=== PATIENT | male | born 1935 | race Caucasian/White ===

== ENCOUNTER 2019-03-27 21:53 | Inpatient (IN) | payer OTHER ==
[~2019-03-27] VITALS: Ht 167.6 cm; Wt 76.0 kg
[2019-03-27 22:11] LABS: PCO2 Arterial 44.7 mmHg (35-45); PO2 Arterial 67.7 mmHg (80-100); pH Blood Arterial 7.38 (7.35-7.45)
[2019-03-27 22:36] LABS: BASOPHILS ABSOLUTE AUTO 0.05 K/mm3 (0.00-0.23); BASOPHILS PERCENT AUTO 1 % (0-2); EOSINOPHILS ABSOLUTE AUTO 0.14 K/mm3 (0.00-0.68); EOSINOPHILS PERCENT AUTO 1 % (0-6); Hematocrit 42.5 % (37.0-53.0); Hemoglobin 13.5 g/dL (13.5-17.5); IMMATURE GRAN ABSOLUTE AUTO 0.04 K/mm3 (0.00-0.10); IMMATURE GRAN PERCENT AUTO 0 % (0-1); LYMPHOCYTES ABSOLUTE AUTO 0.77 K/mm3 (0.84-5.20); LYMPHOCYTES PERCENT AUTO 8 % (21-46); MONOCYTES ABSOLUTE AUTO 1.23 K/mm3 (0.16-1.47); MONOCYTES PERCENT AUTO 12 % (4-13); Mean Corpuscular HGB 32.1 pg (26.0-34.0); Mean Corpuscular HGB Conc 31.8 g/dL (31.5-36.5); Mean Corpuscular Volume 101 fL (80-100); Mean Platelet Volume 9.6 fL (9.1-12.4); NEUTROPHILS PERCENT AUTO 78 % (41-73); Platelet Count 214 K/mm3 (150-400); RDW Coefficient Variation 13.6 % (11.7-14.2); RDW Standard Deviation 50.2 fL (35.1-46.3); Red Blood Cell Count 4.21 M/mm3 (4.30-5.90); White Blood Cell Count 10.33 K/mm3 (4.00-11.30)
[2019-03-27 22:56] LABS: Alanine Aminotransfer (ALT/SGP 29 U/L (12-78); Albumin/Globulin Ratio 0.8 (0.8-1.8); Alk Phos 81 U/L (50-136); Anion Gap 5 mmol/L (6-16); Aspartate Aminotrans (AST/SGOT 23 U/L (12-37); Bilirubin, Total 0.6 mg/dL (0.1-1.0); Blood Urea Nitrogen 18 mg/dL (8-24); Bun/Creatinine Ratio 14.6 (12.0-20.0); CO2, Blood 28 mmol/L (21-32); Calcium, Blood 8.9 mg/dL (8.5-10.1); Chloride, Blood 109 mmol/L (98-108); Creatinine, Blood 1.23 mg/dL (0.60-1.20); Glomerular Filtration Rate 60 (60-); Glucose, Blood 120 mg/dL (70-99); Potassium, Blood 4.7 mmol/L (3.5-5.5); Sodium, Blood 142 mmol/L (136-145); Troponin I <0.015 ng/mL (0.000-0.040)
[2019-03-27 23:07] LABS: International Normalized Ratio 3.33; Prothrombin Time Results 31.6 Sec (9.7-11.5)
[2019-03-28] MEDS ORDERED: ALBU2.5V5 INH (00:50)
[2019-03-28] MEDS ORDERED: THERA-D2000 UNIT PO (00:51)
[2019-03-28] MEDS ORDERED: ALBU90OI INH (00:51)
[2019-03-28] MEDS ORDERED: LANOXIN125 MCG PO (00:52)
[2019-03-28] MEDS ORDERED: DILT30 PO (00:52)
[2019-03-28] MEDS ORDERED: CYAN500 PO (00:52)
[2019-03-28] MEDS ORDERED: Fish Oil 10001000 MG PO (00:53)
[2019-03-28] MEDS ORDERED: Flonase 0.05% N16 GM (00:53)
[2019-03-28] MEDS ORDERED: HYDR10 PO (00:54)
[2019-03-28] MEDS ORDERED: FURO20 PO (00:54)
[2019-03-28] MEDS ORDERED: LOSA25 PO (00:54)
[2019-03-28] MEDS ORDERED: GUAI600T33 PO (00:54)
[2019-03-28] MEDS ORDERED: MUPIROCIN15 GM TOP (00:55)
[2019-03-28] MEDS ORDERED: STRIVERDI RESPIM4 GM INH (00:55)
[2019-03-28] MEDS ORDERED: OXYC5 PO (00:56)
[2019-03-28] MEDS ORDERED: OXYM.05NI (00:56)
[2019-03-28] MEDS ORDERED: K-Dur10 MEQ PO (00:57)
[2019-03-28] MEDS ORDERED: PSEU120ER PO (00:57)
[2019-03-28] MEDS ORDERED: SILD50TA PO (00:59)
[2019-03-28] MEDS ORDERED: TAMS.4ER PO (00:59)
[2019-03-28] MEDS ORDERED: FINA5 PO (01:00)
[2019-03-28] MEDS ORDERED: B-1100 M1 PO (01:00)
[2019-03-28] MEDS ORDERED: TRIA15CR3 TOP (01:00)
[2019-03-28] MEDS ORDERED: ZOSTAVAX V19400 UNIT INJ (01:01)
[2019-03-28] MEDS ORDERED: WARF5 PO (01:01)
--- NOTE | 2019-03-28 02:35 | NUR ---
PT ARRIVED TO ICU 6 FROM ER PCU ADMIT. PT IS A/O. ON 6L NC. PT IS SOB WITH MINIMAL EXERTION. HAVING BLADDER SPASMS FROM GETTING IV LASIX AND IS IN A PANIC OVER NEEDING TO VOID. ABLE TO PLACE CONDOM CATH AND PT CALMED DOWN AND IS ABLE TO VOID INTO IT. ONCE PT IS SETTLED IN TO BED, HIS BREATHING IMPROVES AND HE IS ABLE TO HOLD CONVERSATION. SEE ASSESSMENT.
--- NOTE | 2019-03-28 03:50 | NUR ---
PT IS HYPERTENSIVE AND WORRIED ABOUT NOT GETTING HIS COUMADIN DOSE TODAY. CALLED DR. NORIEGA WHO ORDERED HYDRALAZINE AND HOME COUMADIN DOSE.
[2019-03-28 06:20] LABS: Hematocrit 47.4 % (37.0-53.0); Hemoglobin 15.3 g/dL (13.5-17.5); Mean Corpuscular HGB 31.8 pg (26.0-34.0); Mean Corpuscular HGB Conc 32.3 g/dL (31.5-36.5); Mean Corpuscular Volume 99 fL (80-100); Mean Platelet Volume 9.4 fL (9.1-12.4); Platelet Count 217 K/mm3 (150-400); RDW Coefficient Variation 13.6 % (11.7-14.2); RDW Standard Deviation 49.5 fL (35.1-46.3); Red Blood Cell Count 4.81 M/mm3 (4.30-5.90); White Blood Cell Count 8.71 K/mm3 (4.00-11.30)
[2019-03-28 06:26] LABS: Adenovirus Not Detected (NOT DETECT); Bordetella pertussis Not Detected (NOT DETECT); Chlamydophila pneumoniae Not Detected (NOT DETECT); Coronavirus 229E Not Detected (NOT DETECT); Coronavirus HKU1 Not Detected (NOT DETECT); Coronavirus NL63 Not Detected (NOT DETECT); Coronavirus OC43 Not Detected (NOT DETECT); Human Metapneumovirus Not Detected (NOT DETECT); Human Rhinovirus/Enterovirus Detected (NOT DETECT); Influenza A Not Detected (NOT DETECT); Influenza A/2009-H1 Not Detected (NOT DETECT); Influenza A/H1 Not Detected (NOT DETECT); Influenza A/H3 Not Detected (NOT DETECT); Influenza B Not Detected (NOT DETECT); Mycoplasma pneumoniae Not Detected (NOT DETECT); Parainfluenza Virus 1 Not Detected (NOT DETECT); Parainfluenza Virus 2 Not Detected (NOT DETECT); Parainfluenza Virus 3 Not Detected (NOT DETECT); Parainfluenza Virus 4 Not Detected (NOT DETECT); Respiratory Syncytial Virus Not Detected (NOT DETECT)
[2019-03-28 06:35] LABS: Albumin, Blood 3.5 g/dL (3.4-5.0); Albumin/Globulin Ratio 0.8 (0.8-1.8); Bilirubin, Total 0.9 mg/dL (0.1-1.0); Bun/Creatinine Ratio 15.1 (12.0-20.0); Calcium, Blood 9.6 mg/dL (8.5-10.1); Creatinine, Blood 1.26 mg/dL (0.60-1.20); Globulin, Blood 4.6 g/dL (2.2-4.0); Potassium, Blood 3.9 mmol/L (3.5-5.5); Total Protein, Blood 8.1 g/dL (6.4-8.2)
[2019-03-28 06:36] LABS: CPK Creatine Kinase 91 U/L (39-308); Troponin I <0.015 ng/mL (0.000-0.040)
--- NOTE | 2019-03-28 10:13 | NUR ---
CARDIAC ECHO IN PROGRESS.
--- NOTE | 2019-03-28 12:24 | NUR ---
ECHOCARDIOGRAM COMPLETED
[2019-03-28 14:31] LABS: CPK Creatine Kinase 141 U/L (39-308); Troponin I <0.015 ng/mL (0.000-0.040)
--- NOTE | 2019-03-28 18:18 | NUR ---
TRANSFER NOTIFIED BY VI GOOD THAT PT IS TO TRANSFER TO PCU 14. REPORT RECIEVED FROM VI GRAY.
--- NOTE | 2019-03-28 19:18 | NUR ---
ARRIVAL TO PCU PT ARRIVED TO PCU 14 APPROX 1850. VITALS STABLE. AFIB 80'S. PT ORIENTED TO ROOM. REPORT TO VI ANG TO ASSUME CARE.
--- NOTE | 2019-03-28 20:43 | NUR ---
CARE ASSUMPTION PT A&O X4, CALM AND COOPERATIVE. VSS. MONITOR SHOWS AFIB, HR 90-110. LUNG SOUNDS DIM T/O. SPO2 > 90% ON 4-6L NC. PT W/ CONDOM CATH IN PLACE FOR DIURESES/PT SOB. CATH PATENT AND DRAINING CLEAR YELLOW URINE. PT DENIES PAIN/DISCOMFORT. WILL CONTINUE TO MONITOR AND PROVIDE CARE.
[2019-03-29 04:16] LABS: BASOPHILS ABSOLUTE AUTO 0.01 K/mm3 (0.00-0.23); BASOPHILS PERCENT AUTO 0 % (0-2); EOSINOPHILS PERCENT AUTO 0 % (0-6); Hematocrit 43.9 % (37.0-53.0); IMMATURE GRAN ABSOLUTE AUTO 0.07 K/mm3 (0.00-0.10); IMMATURE GRAN PERCENT AUTO 1 % (0-1); LYMPHOCYTES ABSOLUTE AUTO 0.24 K/mm3 (0.84-5.20); LYMPHOCYTES PERCENT AUTO 2 % (21-46); MONOCYTES ABSOLUTE AUTO 0.23 K/mm3 (0.16-1.47); MONOCYTES PERCENT AUTO 2 % (4-13); Mean Corpuscular HGB 31.4 pg (26.0-34.0); Mean Corpuscular HGB Conc 31.9 g/dL (31.5-36.5); Mean Corpuscular Volume 98 fL (80-100); Mean Platelet Volume 9.4 fL (9.1-12.4); NEUTROPHILS ABSOLUTE AUTO 14.03 K/mm3 (1.96-9.15); NEUTROPHILS PERCENT AUTO 96 % (41-73); Platelet Count 229 K/mm3 (150-400); RDW Coefficient Variation 13.5 % (11.7-14.2); RDW Standard Deviation 49.1 fL (35.1-46.3); Red Blood Cell Count 4.46 M/mm3 (4.30-5.90); White Blood Cell Count 14.58 K/mm3 (4.00-11.30)
[2019-03-29 04:30] LABS: International Normalized Ratio 3.26
[2019-03-29 04:36] LABS: Albumin, Blood 2.9 g/dL (3.4-5.0); Anion Gap 5 mmol/L (6-16); Blood Urea Nitrogen 30 mg/dL (8-24); CO2, Blood 30 mmol/L (21-32); Calcium, Blood 8.9 mg/dL (8.5-10.1); Chloride, Blood 103 mmol/L (98-108); Glomerular Filtration Rate >60 (60-); Glucose, Blood 131 mg/dL (70-99); Phosphorus, Blood 3.1 mg/dL (2.5-4.9); Potassium, Blood 4.2 mmol/L (3.5-5.5); Sodium, Blood 138 mmol/L (136-145)
--- NOTE | 2019-03-29 06:02 | NUR ---
SHIFT SUMMARY PT CONTINUES TO BE A&O X4, CALM AND COOPERATIVE. PT SLEEPING SOUNDLY MAJORITY OF SHIFT. BP ELEVATED, MEDICATED W/ PRN IV HYDRALAZINE PER EMAR X1 THIS SHIFT W/ IMPROVEMENT, OTHERWISE VSS. MONITOR SHOWS AFIB, HR 70-110. LUNG SOUNDS DIM T/O. SPO2 > 90% ON 4-6L NC. PT CONDOM CATH PATENT AND DRAINING CLEAR, DARK YELLOW URINE. WILL CONTINUE TO MONITOR AND PROVIDE CARE UNTIL REPORT OFF TO DAY SHIFT RN.
--- NOTE | 2019-03-29 18:35 | NUR ---
SHIFT SUMMARY PT A&Ox4. CALM AND COOPERATIVE WTIH CARE. LOWER ELWHA EVEN WITH HEARING AIDS IN PLACE. PT SOB WITH EXERTION, SPO2 >90%, STARTED THIS AM ON 6L O2 VIA NC, TITRATED TO 3L O2 VIA NC, 4-5L WITH EXERTION, RECOVERS QUICKLY. PT LS DIM T/O, PT REPROTS HAVE A PORT OF LEFT LUNG REMOVED WHEN HE HAD CANCER. PT DENIES PAIN AND N/V DURING SHIFT. PT RECEIVING IV ANTIBIOTICS AND LASIX. VSS. NO OTHER ACUTE CHANGES NOTED DURING SHIFT. WILL CONTINUE TO MONITOR UNITL REPORT GIVEN TO ONCOMING RN.
[2019-03-30 04:00] LABS: BASOPHILS ABSOLUTE AUTO 0.01 K/mm3 (0.00-0.23); BASOPHILS PERCENT AUTO 0 % (0-2); EOSINOPHILS PERCENT AUTO 0 % (0-6); Hematocrit 44.6 % (37.0-53.0); Hemoglobin 13.9 g/dL (13.5-17.5); IMMATURE GRAN ABSOLUTE AUTO 0.09 K/mm3 (0.00-0.10); IMMATURE GRAN PERCENT AUTO 1 % (0-1); LYMPHOCYTES ABSOLUTE AUTO 0.23 K/mm3 (0.84-5.20); LYMPHOCYTES PERCENT AUTO 1 % (21-46); MONOCYTES ABSOLUTE AUTO 0.37 K/mm3 (0.16-1.47); MONOCYTES PERCENT AUTO 2 % (4-13); Mean Corpuscular HGB 31.2 pg (26.0-34.0); Mean Corpuscular HGB Conc 31.2 g/dL (31.5-36.5); Mean Corpuscular Volume 100 fL (80-100); Mean Platelet Volume 9.3 fL (9.1-12.4); NEUTROPHILS ABSOLUTE AUTO 15.28 K/mm3 (1.96-9.15); NEUTROPHILS PERCENT AUTO 96 % (41-73); Platelet Count 256 K/mm3 (150-400); RDW Coefficient Variation 13.7 % (11.7-14.2); RDW Standard Deviation 50.3 fL (35.1-46.3); Red Blood Cell Count 4.46 M/mm3 (4.30-5.90); White Blood Cell Count 15.98 K/mm3 (4.00-11.30)
[2019-03-30 04:13] LABS: International Normalized Ratio 2.66; Prothrombin Time Results 25.8 Sec (9.7-11.5)
[2019-03-30 04:22] LABS: Albumin, Blood 2.9 g/dL (3.4-5.0); Anion Gap 4 mmol/L (6-16); Blood Urea Nitrogen 44 mg/dL (8-24); Bun/Creatinine Ratio 29.1 (12.0-20.0); CO2, Blood 32 mmol/L (21-32); Calcium, Blood 8.7 mg/dL (8.5-10.1); Chloride, Blood 103 mmol/L (98-108); Creatinine, Blood 1.51 mg/dL (0.60-1.20); Glomerular Filtration Rate 47 (60-); Glucose, Blood 121 mg/dL (70-99); Phosphorus, Blood 3.5 mg/dL (2.5-4.9); Potassium, Blood 4.7 mmol/L (3.5-5.5); Sodium, Blood 139 mmol/L (136-145)
--- NOTE | 2019-03-30 05:34 | NUR ---
SHIFT SUMMARY PT SLEEPING COMFORTABLY IN ROOM AT THIS TIME. NO ACUTE CHANGES IN STATUS T/O NIGHT PT REPORTS SLEEPING WERL. DID REPORT FEELING MORE CONGESTED T/O NIGHT. 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 RESP EVEN UNLABORED AT REST ON 3L NC SATS >92%. RT ALSO PROVIDED PT WITH HUMIDIFIED O2 ON NC TO HELP WITH DRIED OUT NASAL PASAGE, AND HELP BREAK UP MUCOUS. PT DENIES OTHER NEEDS. PT IS ABLE TO AMBULATE FROM BED TO RR W/ ASSIST. CALL LIGHT NI REACH.
--- NOTE | 2019-03-30 07:00 | NUR ---
REPORT AND WALKING ROUNDS WITH DEONDRE LEBRON. ASSUMING PT CARE.
--- NOTE | 2019-03-30 07:50 | NUR ---
VSS. ASSESSMENT AT CHARTED. PT ALERT AND ORIENTED. INDEPENDENT IN THE ROOM. ON 3L O2 (BASELINE). PT HAS NO COMPLAINTS AT THIS TIME. DENIES PAIN OR SOB CURRENTLY. UNABLE TO PROVIDE SPUTUM SPEC CURRENTLY. CALL LIGHT IN REACH. BREAKFAST PROVIDED.
--- NOTE | 2019-03-30 09:25 | NUR ---
PT MEDICATED WITH SCHEDULED MEDICATIONS. PT STILL SITTING UP IN BED. DENIES NEEDS.
--- NOTE | 2019-03-30 10:20 | NUR ---
DRESSING TO IV CHANGED AT THIS TIME.
--- NOTE | 2019-03-30 10:45 | NUR ---
DR SEGURA TO ROOM FOR EVAL. PLAN TO KEEP PT ONE MORE DAY. PLAN TO CONSULT PT. ORDERS FOR IN HOUSE TX TO MED WITH TELE RECEIVED.
--- NOTE | 2019-03-30 11:43 | NUR ---
REPORT TO AUDIE LEBRON ON MEDICAL FLOOR.
--- NOTE | 2019-03-30 12:35 | NUR ---
PT TO IMAGING THEN TO 330 VIA JUANITO. AUDIE LEBRON AWARE. MEDS SENT.
--- NOTE | 2019-03-30 12:45 | NUR ---
PT. ARRIVED TO ROOM VIA WC FROM PCU AFTER GOING FOR CHEST XRAY ON THE WAY UP. PT. A&O. JAYNE AND COOPEATIVE.
--- NOTE | 2019-03-30 18:38 | NUR ---
PT. LYING IN BED WATCHING TV AFTER FINISHING HIS DINNER. NO NOTEABL CHANGES SINCE COMING TO THE FLOOR
--- NOTE | 2019-03-30 23:03 | NUR ---
03/30/19 2250 C/O DRY, PLUGGED NOSE. DEEP SEA NASAL SPRAY GIVEN PER JUN. EDYTA MUHAMMAD WITH Q TIPS TO SOOTHES DRY NARES WELL WAS GIVEN.
[2019-03-31 05:15] LABS: BASOPHILS ABSOLUTE AUTO 0.01 K/mm3 (0.00-0.23); BASOPHILS PERCENT AUTO 0 % (0-2); EOSINOPHILS PERCENT AUTO 0 % (0-6); Hematocrit 44.8 % (37.0-53.0); Hemoglobin 14.2 g/dL (13.5-17.5); IMMATURE GRAN ABSOLUTE AUTO 0.07 K/mm3 (0.00-0.10); IMMATURE GRAN PERCENT AUTO 1 % (0-1); LYMPHOCYTES ABSOLUTE AUTO 0.24 K/mm3 (0.84-5.20); LYMPHOCYTES PERCENT AUTO 2 % (21-46); MONOCYTES ABSOLUTE AUTO 0.59 K/mm3 (0.16-1.47); MONOCYTES PERCENT AUTO 4 % (4-13); Mean Corpuscular HGB 31.8 pg (26.0-34.0); Mean Corpuscular HGB Conc 31.7 g/dL (31.5-36.5); Mean Corpuscular Volume 100 fL (80-100); Mean Platelet Volume 9.2 fL (9.1-12.4); NEUTROPHILS ABSOLUTE AUTO 12.88 K/mm3 (1.96-9.15); NEUTROPHILS PERCENT AUTO 93 % (41-73); Platelet Count 250 K/mm3 (150-400); RDW Coefficient Variation 13.6 % (11.7-14.2); RDW Standard Deviation 49.9 fL (35.1-46.3); Red Blood Cell Count 4.46 M/mm3 (4.30-5.90); White Blood Cell Count 13.79 K/mm3 (4.00-11.30)
[2019-03-31 05:32] LABS: Albumin, Blood 2.8 g/dL (3.4-5.0); Anion Gap 3 mmol/L (6-16); Blood Urea Nitrogen 48 mg/dL (8-24); Bun/Creatinine Ratio 36.6 (12.0-20.0); CO2, Blood 31 mmol/L (21-32); Calcium, Blood 8.4 mg/dL (8.5-10.1); Chloride, Blood 103 mmol/L (98-108); Creatinine, Blood 1.31 mg/dL (0.60-1.20); Glomerular Filtration Rate 55 (60-); Glucose, Blood 112 mg/dL (70-99); International Normalized Ratio 2.83; Phosphorus, Blood 2.8 mg/dL (2.5-4.9); Potassium, Blood 4.8 mmol/L (3.5-5.5); Prothrombin Time Results 27.3 Sec (9.7-11.5); Sodium, Blood 137 mmol/L (136-145)
--- NOTE | 2019-03-31 06:02 | NUR ---
03/31/19 0600 VITALS STABLE. SEE PREVIOUS NOTES FOR MILD ISSUES. O2 REMAINS AT 3LPM VIA N/C. SELF TO THE BATHROOM WITHOUT PROBLEMS.UNEVENTFUL NIGHT.
--- NOTE | 2019-03-31 11:28 | NUR ---
HE HAS BEEN VERY CHEERFUL. HE IS WEARING 3L O2 AND IS SADDENED BY HIS WORSENING COPD OVER THE PAST YEAR. HE WEARS 3L O2 AT HOME ALSO. HE SAYS HE FINALLY QUIT WORKING LAST YEAR BECAUSE OF HIS BREATHING. HE HAS A FRIEND THAT HELPS HIM AT HOME WHEN HE NEEDS IT. UP AD JEAN-PAUL IN THE ROOM.
--- NOTE | 2019-03-31 16:07 | NUR ---
HE IS CURRENTLY ASLEEP ON HIS LEFT SIDE IN THE BED WITH THE HOB UP 45 DEGREES. PO LASIX STARTED EARLIER. NO SIGNIFICANT DIURESIS THUS FAR. HIS BREATHING IS LABORED. HE IS [place]. HE IS VERY PLEASANT. TELE AFIB 80. IV ANTIBIOTICS ONGOING.
--- NOTE | 2019-03-31 18:33 | NUR ---
HE IS WORKING [employer] NOW. HE HAD 1 AFTERNOON NAP. HE EATS AND DRINKS WELL. POOR DIURESIS FROM THE PO LASIX TODAY. 3L NC. INDEPENDENT TO THE BATHROOM. AFIB ON TELE. RATE WNL.
--- NOTE | 2019-04-01 04:36 | NUR ---
SHIFT SUMMARY NO ACUTE CHANGES THIS SHIFT. AOX4. VSS. TELE IN PLACE, RUNNING AFIB HR@74. SPO2 @91% ON 3L O2 (BASELINE). LUNGS SOUND WHEEZY T/O, RT GAVE BREATHING TX PER ORDERS, E/U RESPIRATIONS, PT REPORTS "STUFFY NOSE" & STATES NASAL SPRAY HELPING. DENIES COUGH, PAIN OR NAUSEA. CALL LIGHT IN REACH. WCTM.
[2019-04-01 05:03] LABS: BASOPHILS ABSOLUTE AUTO 0.01 K/mm3 (0.00-0.23); BASOPHILS PERCENT AUTO 0 % (0-2); EOSINOPHILS PERCENT AUTO 0 % (0-6); Hematocrit 44.2 % (37.0-53.0); Hemoglobin 13.9 g/dL (13.5-17.5); IMMATURE GRAN ABSOLUTE AUTO 0.05 K/mm3 (0.00-0.10); IMMATURE GRAN PERCENT AUTO 0 % (0-1); LYMPHOCYTES ABSOLUTE AUTO 0.32 K/mm3 (0.84-5.20); LYMPHOCYTES PERCENT AUTO 3 % (21-46); MONOCYTES ABSOLUTE AUTO 1.03 K/mm3 (0.16-1.47); MONOCYTES PERCENT AUTO 8 % (4-13); Mean Corpuscular HGB 31.6 pg (26.0-34.0); Mean Corpuscular HGB Conc 31.4 g/dL (31.5-36.5); Mean Corpuscular Volume 101 fL (80-100); Mean Platelet Volume 9.1 fL (9.1-12.4); NEUTROPHILS ABSOLUTE AUTO 11.08 K/mm3 (1.96-9.15); NEUTROPHILS PERCENT AUTO 89 % (41-73); Platelet Count 221 K/mm3 (150-400); RDW Coefficient Variation 13.3 % (11.7-14.2); RDW Standard Deviation 49.5 fL (35.1-46.3); White Blood Cell Count 12.49 K/mm3 (4.00-11.30)
[2019-04-01 05:17] LABS: International Normalized Ratio 3.56; Prothrombin Time Results 33.6 Sec (9.7-11.5)
[2019-04-01 05:20] LABS: Albumin, Blood 2.7 g/dL (3.4-5.0); Anion Gap 3 mmol/L (6-16); Blood Urea Nitrogen 45 mg/dL (8-24); Bun/Creatinine Ratio 37.2 (12.0-20.0); CO2, Blood 32 mmol/L (21-32); Calcium, Blood 8.2 mg/dL (8.5-10.1); Chloride, Blood 104 mmol/L (98-108); Creatinine, Blood 1.21 mg/dL (0.60-1.20); Glomerular Filtration Rate >60 (60-); Glucose, Blood 96 mg/dL (70-99); Phosphorus, Blood 2.7 mg/dL (2.5-4.9); Potassium, Blood 4.9 mmol/L (3.5-5.5); Sodium, Blood 139 mmol/L (136-145)
[2019-04-01] MEDS ORDERED: Prednisone10 MG PO (09:32)
[2019-04-01] MEDS ORDERED: Florastor250 MG PO (09:33)
[2019-04-01] MEDS ORDERED: AMOCLA875 PO (09:34)
[2019-04-01] MEDS ORDERED: FLUT1DIS5 INH (09:34)
--- NOTE | 2019-04-01 13:30 | NUR ---
PT DISCHARGED THE PT AND HIS UNIVERSITY INTERN VERBALIZED UNDERSTANDING OF THE DC INSTRUCTIONS, [facility]POINTMENT WAS MADE [facility], THE [facility] PRES[facility] TO [facility] REQUEST[facility], PTS HOME O2 OXYGEN WAS APPLIED, THE PT WAS TRANSFERED VIA WHEELCHAIR ACCOMPANIED BY THE [facility] AND HIS CAREGIVER
== END 2019-04-01 13:29 | disposition home health service (06) | DRG 291 ==
LOC: ER 21:53 → ICUW 03-28 02:40 → ICUE 03-28 02:50 → PCU 03-28 19:00 → MEDS 03-30 12:45 → ENPENDDIS 04-01 11:25 → MEDS 04-01 13:29
PROVIDERS: Emergency Medicine; Family Medicine; Pharmacist; ADMIT Internal Medicine
PROC: 5A09357 Assistance with Respiratory Ventilation, Less than 24 Consecutive Hours, Continuous Positive Airway Pressure (ICD-10-PCS; principal; 2019-03-27)
DX: I13.0 Hypertensive heart and chronic kidney disease with heart failure and stage 1 through stage 4 chronic kidney disease, or unspecified chronic kidney disease (principal); J96.01 Acute respiratory failure with hypoxia; I50.31 Acute diastolic (congestive) heart failure; J18.9 Pneumonia, unspecified organism; J44.1 Chronic obstructive pulmonary disease with (acute) exacerbation; N17.9 Acute kidney failure, unspecified; Z85.118 Personal history of other malignant neoplasm of bronchus and lung; N40.0 Benign prostatic hyperplasia without lower urinary tract symptoms; N18.2 Chronic kidney disease, stage 2 (mild); I48.91 Unspecified atrial fibrillation; Z99.81 Dependence on supplemental oxygen; J06.9 Acute upper respiratory infection, unspecified; T38.0X5A Adverse effect of glucocorticoids and synthetic analogues, initial encounter; Y92.239 Unspecified place in hospital as the place of occurrence of the external cause; Z79.01 Long term (current) use of anticoagulants
CPT/HCPCS: 0099U; 36415; 36600; 71045; 71046; 80053; 80069; 80162; 82550; 82803; 83735; 83880; 84145; 84484; 85025; 85027; 85610; 93005; 93010; 93306; 94640; 94644; 94660; 94760; 94762; 96374; 96375; 97110; 97162; 97166; 99285-25; J0360; J0456; J0696; J1940; J2930; J7050; J7512

== ENCOUNTER 2020-05-13 12:33 | Inpatient (IN) | payer OTHER ==
[~2020-05-13] VITALS: Ht 175.3 cm; Wt 81.9 kg
[~2020-05-13 12:33] MED LIST: ALBU2.5V5 INH; ALBU90OI INH; AMOCLA875 PO; B-1100 M1 PO; CYAN500 PO; DILT180 PO; FINA5 PO; FLUTICASONE-SA1 EAC2 INH; FURO20 PO; Fish Oil 10001000 MG PO; Flonase 0.05% N16 GM; Florastor250 MG PO; GUAI600T33 PO; HYDR10 PO; K-Dur10 MEQ PO; LANOXIN125 MCG PO; LOSA25 PO; MUPIROCIN15 GM TOP; OXYC5 PO; OXYM.05NI; PSEU120ER PO; Prednisone10 MG PO; SILD50TA PO; STRIVERDI RESPIM4 GM INH; TAMS.4ER PO; THERA-D2000 UNIT PO; TRIA15CR3 TOP; WARF5 PO; ZOSTAVAX V19400 UNIT INJ
[2020-05-13 12:48] LABS: Bicarbonate Venous 28.5 mmol/L (24.0-30.0); PCO2 Venous 81.1 mmHg (38-42); PO2 Venous 34.2 mmHg (38-42); pH Blood Venous 7.26 (7.34-7.37)
[2020-05-13 13:03] LABS: BASOPHILS ABSOLUTE AUTO 0.04 K/mm3 (0.00-0.23); BASOPHILS PERCENT AUTO 0 % (0-2); EOSINOPHILS ABSOLUTE AUTO 0.04 K/mm3 (0.00-0.68); EOSINOPHILS PERCENT AUTO 0 % (0-6); Hematocrit 46.7 % (37.0-53.0); Hemoglobin 14.3 g/dL (13.5-17.5); IMMATURE GRAN ABSOLUTE AUTO 0.04 K/mm3 (0.00-0.10); IMMATURE GRAN PERCENT AUTO 0 % (0-1); LYMPHOCYTES PERCENT AUTO 5 % (21-46); MONOCYTES ABSOLUTE AUTO 1.36 K/mm3 (0.16-1.47); MONOCYTES PERCENT AUTO 12 % (4-13); Mean Corpuscular HGB 32.3 pg (26.0-34.0); Mean Corpuscular HGB Conc 30.6 g/dL (31.5-36.5); Mean Corpuscular Volume 105 fL (80-100); Mean Platelet Volume 9.4 fL (9.1-12.4); NEUTROPHILS ABSOLUTE AUTO 9.25 K/mm3 (1.96-9.15); NEUTROPHILS PERCENT AUTO 82 % (41-73); Platelet Count 223 K/mm3 (150-400); RDW Coefficient Variation 13.2 % (11.7-14.2); RDW Standard Deviation 52.2 fL (35.1-46.3); Red Blood Cell Count 4.43 M/mm3 (4.30-5.90); White Blood Cell Count 11.23 K/mm3 (4.00-11.30)
[2020-05-13 13:27] LABS: Alanine Aminotransfer (ALT/SGP 19 U/L (12-78); Albumin, Blood 3.1 g/dL (3.4-5.0); Albumin/Globulin Ratio 0.7 (0.8-1.8); Alk Phos 88 U/L (50-136); Anion Gap 2 mmol/L (6-16); Aspartate Aminotrans (AST/SGOT 17 U/L (12-37); Bilirubin, Total 0.5 mg/dL (0.1-1.0); Blood Urea Nitrogen 19 mg/dL (8-24); Bun/Creatinine Ratio 18.1 (12.0-20.0); CO2, Blood 34 mmol/L (21-32); Calcium, Blood 9.1 mg/dL (8.5-10.1); Chloride, Blood 103 mmol/L (98-108); Creatinine, Blood 1.05 mg/dL (0.60-1.20); Globulin, Blood 4.4 g/dL (2.2-4.0); Glomerular Filtration Rate >60 (60-); Glucose, Blood 123 mg/dL (70-99); Potassium, Blood 4.5 mmol/L (3.5-5.5); Sodium, Blood 139 mmol/L (136-145); Total Protein, Blood 7.5 g/dL (6.4-8.2); Troponin I <0.015 ng/mL (0.000-0.040)
[2020-05-13 13:51] LABS: Influenza A, PCR NEGATIVE (NEGATIVE); Influenza B, PCR NEGATIVE (NEGATIVE); Resp Syncytial Virus, PCR NEGATIVE (NEGATIVE); SARS-Cov-2 (COVID-19) PCR, MMC NEGATIVE (NEGATIVE)
[2020-05-13 15:56] LABS: International Normalized Ratio 3.91; Prothrombin Time Results 38.7 Sec (9.7-11.5)
--- NOTE | 2020-05-13 17:39 | NUR ---
ATTEMPTED TO REACH PT'S CAREGIVER VINAYAK NG ([phone]) PER PT'S REQUEST TO COMPLETE HIS MED REC. UNABLE TO REACH HER AT THIS TIME.
--- NOTE | 2020-05-13 18:40 | NUR ---
ADMISSION ASSUMED CARE FROM INDUSTRIAL HYGIENE MANAGER, SHIFT SUMMARY PT ARRIVED TO PCU VIA STRETCHER AT APPROXIMATELY 1600. PT ARRIVED ON 6L O2 VIA NC. VS STABLE WITH EXCEPTION OF RR, WHICH IS ELEVATED, PT HAS LABORED AND SHALLOW BREATHING. PT HAS BIPAP AT BEDSIDE BUT REFUSES TO WEAR IT STATES "IT DRIES ME OUT." PT HAS DILTIAZEM DRIP THAT WAS STARTED IN ER AND WAS AT 10MG/HR UPON ARRIVAL BUT HAS SINCE BEEN TITRATED DOWN TO 5MG/HR. PT IS SITTING AT THE BEDSIDE WATCHING TV AT THIS TIME.
[2020-05-14 03:40] LABS: BASOPHILS ABSOLUTE AUTO 0.01 K/mm3 (0.00-0.23); BASOPHILS PERCENT AUTO 0 % (0-2); EOSINOPHILS PERCENT AUTO 0 % (0-6); Hemoglobin 13.2 g/dL (13.5-17.5); IMMATURE GRAN ABSOLUTE AUTO 0.03 K/mm3 (0.00-0.10); IMMATURE GRAN PERCENT AUTO 0 % (0-1); LYMPHOCYTES ABSOLUTE AUTO 0.24 K/mm3 (0.84-5.20); LYMPHOCYTES PERCENT AUTO 3 % (21-46); MONOCYTES ABSOLUTE AUTO 0.06 K/mm3 (0.16-1.47); MONOCYTES PERCENT AUTO 1 % (4-13); Mean Corpuscular HGB 31.1 pg (26.0-34.0); Mean Corpuscular Volume 104 fL (80-100); Mean Platelet Volume 9.5 fL (9.1-12.4); NEUTROPHILS ABSOLUTE AUTO 8.62 K/mm3 (1.96-9.15); NEUTROPHILS PERCENT AUTO 96 % (41-73); Platelet Count 209 K/mm3 (150-400); RDW Standard Deviation 49.7 fL (35.1-46.3); Red Blood Cell Count 4.25 M/mm3 (4.30-5.90); White Blood Cell Count 8.96 K/mm3 (4.00-11.30)
[2020-05-14 03:59] LABS: Prothrombin Time Results 40.8 Sec (9.7-11.5)
[2020-05-14 04:04] LABS: Alanine Aminotransfer (ALT/SGP 20 U/L (12-78); Albumin, Blood 2.8 g/dL (3.4-5.0); Albumin/Globulin Ratio 0.7 (0.8-1.8); Alk Phos 79 U/L (50-136); Anion Gap 1 mmol/L (6-16); Aspartate Aminotrans (AST/SGOT 16 U/L (12-37); Bilirubin, Total 0.4 mg/dL (0.1-1.0); Blood Urea Nitrogen 27 mg/dL (8-24); Bun/Creatinine Ratio 26.7 (12.0-20.0); CO2, Blood 36 mmol/L (21-32); Calcium, Blood 9.2 mg/dL (8.5-10.1); Chloride, Blood 103 mmol/L (98-108); Creatinine, Blood 1.01 mg/dL (0.60-1.20); Glomerular Filtration Rate >60 (60-); Glucose, Blood 154 mg/dL (70-99); Potassium, Blood 5.2 mmol/L (3.5-5.5); Sodium, Blood 140 mmol/L (136-145); Total Protein, Blood 6.8 g/dL (6.4-8.2)
[2020-05-14 04:16] LABS: International Normalized Ratio 4.13
--- NOTE | 2020-05-14 06:46 | NUR ---
SHIFT SUMMARY PATIENT VERY PLEASENT AND COOPERATIVE THROUGHOUT THE NIGHT. PATIENT APPEARED TO SLEEP WELL LAST NIGHT AND APPEARED TO BE MOVING SELF ABOUT IN BED WELL. PATIENT'S HEART RATE REMAINED AFIB IN THE LOW 100'S TO ONE TEENS. CARDIZEM GTT CONTINUES TO RUN PER EMAR. VITAL SIGNS CHARTED. PATIENT CURRENTLY SITTING AT THE EDGE OF THE BED DRINKING DECAF GIOVANNY. WILL CONTINUE CURRENT PLAN OF CARE.
--- NOTE | 2020-05-14 10:06 | NUR ---
ASSUMED CARE FROM NOC RN, MORNING UPDATE PT WAS AWAKE AND AT THE BEDSIDE DURING REPORT. PT DENIED CHEST PAIN, PRESSURE OR DISCOMFORT. PT EXPRESSED CONCERN ABOUT NOT HAVING PHONE CHARGERS OR A TOOL DISPATCHER FOR HIS HEARING AID, AND NOT BEING ABLE TO GET A HOLD OF HIS FRIEND DUE TO HER FEELING ILL. PT IS CONCERNED THAT HE'LL BE SENT HOME BEFORE HE IS READY. I ASSURED THE PT THAT WE WOULD NOT SEND HIM HOME OR DISCHARGE HIM UNLESS IT IS SAFE TO DO SO; PT CONFIRMED HIS UNDERSTANDING VERBALLY. PT IS ALERT AND ORIENTED AND WAS ABLE TO TAKE MORNING MEDICATIONS AND HAVE BREAKFAST. PT WAS ON 5MG/HR OF CARDIZEM AT THE START OF SHIFT; HIS HR BEGAN TO SUSTAIN IN THE 90s AND IT WAS STOPPED; APPROXIMATLEY 2 HOURS LATER IT WAS STARTED AGAIN SINCE HIS HR BEGAN SUSTAINING 100-120s AGAIN. PT IS CURRENTLY UP ON THE BSC
[2020-05-14] MEDS ORDERED: LEVOTHYROXINE75 MC1 PO (12:09)
[2020-05-14] MEDS ORDERED: OXYM.05NI (12:10)
--- NOTE | 2020-05-14 17:48 | NUR ---
SHIFT SUMMARY PT HAS BEEN AWAKE AND ORIENTED THROUGHOUT THE DAY. PT HAS CONTINUED TO REFUSE THE BIPAP BUT WAS FITTED FOR CPAP MASK TODAY BY RESPIRATORY CARE AND WILL TRY TO USE THAT FOR SLEEP TONIGHT. PT HAS REMAINED ON 6L O2 VIA NC AND HAS OCCASSIONALLY HAS SATURATION DIP TO 86% DEPENDING ON MOVEMENT, TALKING AND EATING PT BECOMES SOB. ONCE RELAXED PT IS ABLE TO RECOVER WITHOUT ADDITIONAL O2. PT IS CURRENTLY SITTING AT THE SIDE OF THE BED HAVING DINNER. FAMILY HAS BEEN UPDATED THROUGHOUT THE DAY, MED REC WAS COMPLETED TODAY OVER THE PHONE WITH FAMILY FRIEND/CAREGIVER.
[2020-05-15 04:16] LABS: BASOPHILS ABSOLUTE AUTO 0.02 K/mm3 (0.00-0.23); BASOPHILS PERCENT AUTO 0 % (0-2); EOSINOPHILS PERCENT AUTO 0 % (0-6); Hematocrit 43.6 % (37.0-53.0); Hemoglobin 13.5 g/dL (13.5-17.5); IMMATURE GRAN ABSOLUTE AUTO 0.13 K/mm3 (0.00-0.10); IMMATURE GRAN PERCENT AUTO 1 % (0-1); LYMPHOCYTES PERCENT AUTO 1 % (21-46); MONOCYTES ABSOLUTE AUTO 0.42 K/mm3 (0.16-1.47); MONOCYTES PERCENT AUTO 2 % (4-13); Mean Corpuscular HGB 31.8 pg (26.0-34.0); Mean Corpuscular Volume 103 fL (80-100); Mean Platelet Volume 9.6 fL (9.1-12.4); NEUTROPHILS ABSOLUTE AUTO 17.89 K/mm3 (1.96-9.15); NEUTROPHILS PERCENT AUTO 96 % (41-73); Platelet Count 254 K/mm3 (150-400); RDW Coefficient Variation 13.2 % (11.7-14.2); RDW Standard Deviation 49.6 fL (35.1-46.3); Red Blood Cell Count 4.24 M/mm3 (4.30-5.90); White Blood Cell Count 18.66 K/mm3 (4.00-11.30)
[2020-05-15 04:25] LABS: International Normalized Ratio 3.29; Prothrombin Time Results 32.9 Sec (9.7-11.5)
[2020-05-15 04:36] LABS: Anion Gap 6 mmol/L (6-16); Blood Urea Nitrogen 34 mg/dL (8-24); Bun/Creatinine Ratio 31.8 (12.0-20.0); CO2, Blood 34 mmol/L (21-32); Calcium, Blood 9.1 mg/dL (8.5-10.1); Chloride, Blood 99 mmol/L (98-108); Creatinine, Blood 1.07 mg/dL (0.60-1.20); Glomerular Filtration Rate >60 (60-); Glucose, Blood 162 mg/dL (70-99); Magnesium, Blood 2.2 mg/dL (1.6-2.4); Phosphorus, Blood 2.7 mg/dL (2.5-4.9); Potassium, Blood 4.2 mmol/L (3.5-5.5); Sodium, Blood 139 mmol/L (136-145)
--- NOTE | 2020-05-15 06:50 | NUR ---
SHIFT SUMMARY PATIENT PLEASENT AND COOPERATIVE LAST NIGHT. PATIENT APPEARED TO SLEEP WELL THROUGHOUT MOST OF THE NIGHT. PATIENT WORE HIS BIPAP FOR APPROX 30-45 MINUTES, THEN DECLINED IT FOR THE REST OF THE NIGHT. PATIENT WAS ABLE TO MAINTAIN O2 SATURATION ON 6L O2, EVEN WHEN ASLEEP. CONTINUOUS BIOX IN PLACE. PATIENT'S HEART RATE AFIB IN THE 90'S-110'S. CARDIZEM GTT RUNNING PER ORDERS. WILL CONTINUE CURRENT PLAN OF CARE AND REPORT OFF TO DAY SHIFT RN.
--- NOTE | 2020-05-15 10:06 | NUR ---
UPDATE: PT SUSTAINING HR 90-110. CARDIZEM DRIP TURNED DOWN TO 10MG/HR FROM 15 MG/HR. WILL CONTINUE TO MONITOR HR.
--- NOTE | 2020-05-15 19:24 | NUR ---
SHIFT SUMMARY: PT ALERT AND ORIENTED X4. ON 6 L O2 VIA NASAL CANNULA SATING ABOVE 92%. TELE SHOWING AFIB WITH HR 100-110. DENIES CHEST PAIN. CARDIZEM DRIP RUNNING AT 10MG/HR. PO CARDIZEM STARTED THIS SHIFT. PT HARD OF HEARING WITHOUT HEARING AID IN. SOB WITH MOVEMENT. DAUGHTER IN TO SEE PATIENT THIS AFTERNOON. PT ANXIOUS AND UPSET WITH DAUGHTER TALKING ABOUT MAKING CHANGES AT HIS HOME. USING CALL LIGHT APPROPRIATLY. BED REMAINED IN LOW LOCKED POSITION.
[2020-05-16 04:33] LABS: BASOPHILS ABSOLUTE AUTO 0.02 K/mm3 (0.00-0.23); BASOPHILS PERCENT AUTO 0 % (0-2); EOSINOPHILS PERCENT AUTO 0 % (0-6); Hematocrit 41.6 % (37.0-53.0); Hemoglobin 12.8 g/dL (13.5-17.5); IMMATURE GRAN ABSOLUTE AUTO 0.09 K/mm3 (0.00-0.10); IMMATURE GRAN PERCENT AUTO 1 % (0-1); LYMPHOCYTES ABSOLUTE AUTO 0.15 K/mm3 (0.84-5.20); LYMPHOCYTES PERCENT AUTO 1 % (21-46); MONOCYTES ABSOLUTE AUTO 0.41 K/mm3 (0.16-1.47); MONOCYTES PERCENT AUTO 2 % (4-13); Mean Corpuscular HGB 31.4 pg (26.0-34.0); Mean Corpuscular HGB Conc 30.8 g/dL (31.5-36.5); Mean Corpuscular Volume 102 fL (80-100); Mean Platelet Volume 9.8 fL (9.1-12.4); NEUTROPHILS ABSOLUTE AUTO 17.22 K/mm3 (1.96-9.15); NEUTROPHILS PERCENT AUTO 96 % (41-73); Platelet Count 226 K/mm3 (150-400); RDW Coefficient Variation 13.2 % (11.7-14.2); RDW Standard Deviation 50.5 fL (35.1-46.3); Red Blood Cell Count 4.07 M/mm3 (4.30-5.90); White Blood Cell Count 17.89 K/mm3 (4.00-11.30)
[2020-05-16 04:45] LABS: International Normalized Ratio 3.04; Prothrombin Time Results 30.5 Sec (9.7-11.5)
[2020-05-16 04:55] LABS: Albumin, Blood 2.7 g/dL (3.4-5.0); Anion Gap 5 mmol/L (6-16); Blood Urea Nitrogen 39 mg/dL (8-24); Bun/Creatinine Ratio 34.2 (12.0-20.0); CO2, Blood 34 mmol/L (21-32); Calcium, Blood 8.8 mg/dL (8.5-10.1); Chloride, Blood 101 mmol/L (98-108); Creatinine, Blood 1.14 mg/dL (0.60-1.20); Glomerular Filtration Rate >60 (60-); Glucose, Blood 139 mg/dL (70-99); Phosphorus, Blood 2.8 mg/dL (2.5-4.9); Potassium, Blood 4.4 mmol/L (3.5-5.5); Sodium, Blood 140 mmol/L (136-145)
--- NOTE | 2020-05-16 05:32 | NUR ---
SHIFT SUMMARY PT ALERT AND ORIENTED. VS STABLE. O2 SATS HAVE REMAINED ABOVE 90% ON 4L NC. BP STABLE. HR AFIB 90'S AT THIS TIME. CARDIZEM GTT AT 5ML/H. PT DENIES ANY PAIN. PT ABLE TO AMBULATE TO [facility] [place] TO VOID WITH MINIMAL ASSISTANCE. WILL CONTINUE TO MONITOR AND REPORT TO ONCOMING RN. CALL LIGHT IN REACH.
--- NOTE | 2020-05-16 11:32 | NUR ---
Spiritual care visit conducted. Patient talks about the lung cancer that he has had and how he was left with one lung. 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 He also talks about his three grown kids in [place] from his 1st marriage and one grown child, Olivia, in [place] from his second . Olivia is in [place] to try to help patient. Patient tells me his fears and struggles as he deals with his approaching expiration date and also the joys of living a full life. I normalize patient's experience and provide spiritual guidance, companionship and prayer. Patient responds well and shows signs of increased peace. I will continue to remain available to patient and family.
--- NOTE | 2020-05-16 18:00 | NUR ---
SHIFT SUMMARY PT A&O; HYDABURG; FORGETFUL AT TIMES. UP 1 PERSON ASSIST TO BSC. PT DENIES PAIN, CHEST PAIN, NAUSEA, DIZZINESS. TRANSITIONED FROM CARDIZEM GTT TO PO. PT SOB WITH EXERTION; 4-6L O2 VIA NC DURING SHIFT. OTHER VSS. NO OTHER ACUTE CHANGES NOTED DURING SHIFT. WILL CONTINUE TO MONITOR UNTIL REPORT GIVEN TO ONCOMING RN.
[2020-05-17 04:42] LABS: BASOPHILS ABSOLUTE AUTO 0.01 K/mm3 (0.00-0.23); BASOPHILS PERCENT AUTO 0 % (0-2); EOSINOPHILS PERCENT AUTO 0 % (0-6); Hematocrit 39.8 % (37.0-53.0); Hemoglobin 12.3 g/dL (13.5-17.5); IMMATURE GRAN ABSOLUTE AUTO 0.13 K/mm3 (0.00-0.10); IMMATURE GRAN PERCENT AUTO 1 % (0-1); LYMPHOCYTES ABSOLUTE AUTO 0.14 K/mm3 (0.84-5.20); LYMPHOCYTES PERCENT AUTO 1 % (21-46); MONOCYTES ABSOLUTE AUTO 0.44 K/mm3 (0.16-1.47); MONOCYTES PERCENT AUTO 3 % (4-13); Mean Corpuscular HGB 31.5 pg (26.0-34.0); Mean Corpuscular HGB Conc 30.9 g/dL (31.5-36.5); Mean Corpuscular Volume 102 fL (80-100); Mean Platelet Volume 9.7 fL (9.1-12.4); NEUTROPHILS ABSOLUTE AUTO 15.76 K/mm3 (1.96-9.15); NEUTROPHILS PERCENT AUTO 96 % (41-73); Platelet Count 240 K/mm3 (150-400); RDW Coefficient Variation 13.2 % (11.7-14.2); RDW Standard Deviation 49.8 fL (35.1-46.3); White Blood Cell Count 16.48 K/mm3 (4.00-11.30)
[2020-05-17 04:55] LABS: International Normalized Ratio 2.22; Prothrombin Time Results 22.7 Sec (9.7-11.5)
[2020-05-17 04:57] LABS: Anion Gap 2 mmol/L (6-16); Blood Urea Nitrogen 44 mg/dL (8-24); Bun/Creatinine Ratio 40.4 (12.0-20.0); CO2, Blood 37 mmol/L (21-32); Calcium, Blood 8.9 mg/dL (8.5-10.1); Chloride, Blood 101 mmol/L (98-108); Creatinine, Blood 1.09 mg/dL (0.60-1.20); Glomerular Filtration Rate >60 (60-); Glucose, Blood 118 mg/dL (70-99); Potassium, Blood 4.6 mmol/L (3.5-5.5); Sodium, Blood 140 mmol/L (136-145)
--- NOTE | 2020-05-17 06:05 | NUR ---
SHIFT SUMMARY PATIENT IS ALERT, ORIENTED, AND COOPERATVE WITH CARE. PATIENT SLEPT MOST THE NIGHT. SBA TO BEDSIDE COMMODE. PATIENT IS 91% ON 5L VIA NC. PATIENT IS A.FIB 90s-110. VSS, NO ACUTE CHANGES. CALL LIGHT IN REACH.
--- NOTE | 2020-05-17 12:54 | NUR ---
Echocardiogram performed.
--- NOTE | 2020-05-17 18:29 | NUR ---
SHIFT SUMMARY PT A&Ox3; NOTTAWASEPPI POTAWATOMI. PT UP WITH ONE PERSON ASSIST TO BSC. PT SOB AT REST AT TIMES, ON 4-6L O2 VIA NC. CALM AND COOPEATIVE PT CARE. PT DENIES PAIN, CHEST PAIN, NAUSEA AND DIZZINESS. ECHO COMPLETED DURING SHIFT. VSS. NO OTHER ACUTE CHANGES NOTED DURING SHIFT. WILL CONTINUE TO MONITOR UNTIL REPORT GIVEN TO ONCOMING RN.
[2020-05-18 04:01] LABS: Hematocrit 41.8 % (37.0-53.0); Hemoglobin 13.1 g/dL (13.5-17.5); Mean Corpuscular HGB 31.6 pg (26.0-34.0); Mean Corpuscular HGB Conc 31.3 g/dL (31.5-36.5); Mean Corpuscular Volume 101 fL (80-100); Mean Platelet Volume 9.2 fL (9.1-12.4); Platelet Count 225 K/mm3 (150-400); RDW Coefficient Variation 13.1 % (11.7-14.2); RDW Standard Deviation 48.7 fL (35.1-46.3); Red Blood Cell Count 4.14 M/mm3 (4.30-5.90); White Blood Cell Count 14.93 K/mm3 (4.00-11.30)
--- NOTE | 2020-05-18 04:08 | NUR ---
SHIFT SUMMARY PATIENT IS ALERT, ORIENTED, AND COOPERATIVE WITH CARE. INDEPENDENT TO BEDSIDE COMMODE AND WITH REPOSITIONING IN BED. PATIENT STATES HE IS USING THE INCENTIVE SPIROMETER AND FLUTTER VALVE. 02 SATS 95% ON 4L VIA NC. VSS, NO ACUTE CHANGES. CALL LIGHT IN REACH.
[2020-05-18 04:15] LABS: International Normalized Ratio 1.61; Prothrombin Time Results 16.8 Sec (9.7-11.5)
[2020-05-18 04:20] LABS: Albumin, Blood 2.7 g/dL (3.4-5.0); Anion Gap 2 mmol/L (6-16); Blood Urea Nitrogen 46 mg/dL (8-24); CO2, Blood 39 mmol/L (21-32); Calcium, Blood 8.8 mg/dL (8.5-10.1); Chloride, Blood 100 mmol/L (98-108); Creatinine, Blood 1.15 mg/dL (0.60-1.20); Glomerular Filtration Rate >60 (60-); Glucose, Blood 119 mg/dL (70-99); Phosphorus, Blood 3.4 mg/dL (2.5-4.9); Potassium, Blood 4.6 mmol/L (3.5-5.5); Sodium, Blood 141 mmol/L (136-145)
[2020-05-18 04:31] LABS: BASOPHILS PERCENT MAN 0 % (0-2); EOSINOPHILS PERCENT MAN 0 % (0-6); LYMPHOCYTES ABSOLUTE MAN 0.74 K/mm3 (0.84-5.20); LYMPHOCYTES PERCENT MAN 5 % (21-46); MONOCYTES PERCENT MAN 0 % (4-13); NEUTROPHILS ABSOLUTE MAN 14.18 K/mm3 (1.96-9.15); SEG NEUTROPHILS PERCENT MAN 95 % (41-73); TOTAL CELLS COUNTED 100
--- NOTE | 2020-05-18 18:21 | NUR ---
PT ON 4LNC AT REST, DESATS WITH ANY ACTIVITY, INCLUDING EATING, WALKED WITH P.T. IN [place]UNE[place], REQUIRED 5-6LNC. USED FLUTTER VALVE AND IS OCCASSIONALLY. NO ACUTE CHANGES NOTED THIS SHIFT, WILL CONTINUE TO MONITOR AND REPORT TO ONCOMING RN.
--- NOTE | 2020-05-19 04:34 | NUR ---
SHIFT SUMMARY PATIENT IS ALERT, ORIENTED, AND COOPERATIVE WITH CARE. INDEPENDENT TO BEDSIDE COMMODE AND WITH REPOSITIONING IN BED. 02 SATS 90-95% ON 4L VIA NC. PATIENT SLEPT MOST THE NIGHT. VSS, NO ACUTE CHANGES. CALL LIGHT IN REACH.
[2020-05-19 04:48] LABS: BASOPHILS ABSOLUTE AUTO 0.04 K/mm3 (0.00-0.23); BASOPHILS PERCENT AUTO 0 % (0-2); EOSINOPHILS PERCENT AUTO 0 % (0-6); Hematocrit 41.4 % (37.0-53.0); Hemoglobin 12.8 g/dL (13.5-17.5); IMMATURE GRAN ABSOLUTE AUTO 0.15 K/mm3 (0.00-0.10); IMMATURE GRAN PERCENT AUTO 1 % (0-1); LYMPHOCYTES ABSOLUTE AUTO 0.17 K/mm3 (0.84-5.20); LYMPHOCYTES PERCENT AUTO 1 % (21-46); MONOCYTES ABSOLUTE AUTO 0.48 K/mm3 (0.16-1.47); MONOCYTES PERCENT AUTO 3 % (4-13); Mean Corpuscular HGB 31.2 pg (26.0-34.0); Mean Corpuscular HGB Conc 30.9 g/dL (31.5-36.5); Mean Corpuscular Volume 101 fL (80-100); Mean Platelet Volume 9.2 fL (9.1-12.4); NEUTROPHILS ABSOLUTE AUTO 15.62 K/mm3 (1.96-9.15); NEUTROPHILS PERCENT AUTO 95 % (41-73); Platelet Count 231 K/mm3 (150-400); RDW Coefficient Variation 13.1 % (11.7-14.2); RDW Standard Deviation 49.1 fL (35.1-46.3); White Blood Cell Count 16.46 K/mm3 (4.00-11.30)
[2020-05-19 05:09] LABS: International Normalized Ratio 1.56; Prothrombin Time Results 16.3 Sec (9.7-11.5)
[2020-05-19 05:42] LABS: Albumin, Blood 2.7 g/dL (3.4-5.0); Anion Gap 1 mmol/L (6-16); Blood Urea Nitrogen 51 mg/dL (8-24); Bun/Creatinine Ratio 43.2 (12.0-20.0); CO2, Blood 40 mmol/L (21-32); Calcium, Blood 8.8 mg/dL (8.5-10.1); Chloride, Blood 98 mmol/L (98-108); Creatinine, Blood 1.18 mg/dL (0.60-1.20); Glomerular Filtration Rate >60 (60-); Glucose, Blood 111 mg/dL (70-99); Phosphorus, Blood 2.9 mg/dL (2.5-4.9); Potassium, Blood 4.9 mmol/L (3.5-5.5); Sodium, Blood 139 mmol/L (136-145)
--- NOTE | 2020-05-19 08:00 | NUR ---
pt sitting up on side of the bed eating breakfast, a/ox3, but mohegan, is cooperative with care, follows commands well, denies pain, states he may go home in the next few days, lungs are very dim t/o, resp even and mildly labored, sats are 85% turned up to 5 liters while eating, he reports occ productive cough of yellow sputum, asked him to give a sample if he brings more up, states he's on 02 at home, hrirr, tele in place running afib per monitor, see strip, no edema noted, ppp+1, cap refill <3sec, vs stable, afebrile, iv site to rfa clear and patent, btx4, abd flat soft nontender, voids without diff, skin frail, c/w/d, lorie kennedy, call light in reach.
--- NOTE | 2020-05-19 17:06 | NUR ---
pt left via bed for surgical floor, report given to Libby LEBRON. daughter with him. he has all belongings.
--- NOTE | 2020-05-19 17:24 | NUR ---
pt arrived to room 228 from pcu called rt to get cont biox pt's daughter at bedside
[2020-05-20 04:34] LABS: BASOPHILS ABSOLUTE AUTO 0.03 K/mm3 (0.00-0.23); BASOPHILS PERCENT AUTO 0 % (0-2); EOSINOPHILS PERCENT AUTO 0 % (0-6); Hematocrit 40.1 % (37.0-53.0); Hemoglobin 12.6 g/dL (13.5-17.5); IMMATURE GRAN ABSOLUTE AUTO 0.21 K/mm3 (0.00-0.10); IMMATURE GRAN PERCENT AUTO 1 % (0-1); LYMPHOCYTES ABSOLUTE AUTO 0.16 K/mm3 (0.84-5.20); LYMPHOCYTES PERCENT AUTO 1 % (21-46); MONOCYTES ABSOLUTE AUTO 0.48 K/mm3 (0.16-1.47); MONOCYTES PERCENT AUTO 3 % (4-13); Mean Corpuscular HGB 31.8 pg (26.0-34.0); Mean Corpuscular HGB Conc 31.4 g/dL (31.5-36.5); Mean Corpuscular Volume 101 fL (80-100); Mean Platelet Volume 9.4 fL (9.1-12.4); NEUTROPHILS ABSOLUTE AUTO 15.78 K/mm3 (1.96-9.15); NEUTROPHILS PERCENT AUTO 95 % (41-73); Platelet Count 225 K/mm3 (150-400); RDW Standard Deviation 48.6 fL (35.1-46.3); Red Blood Cell Count 3.96 M/mm3 (4.30-5.90); White Blood Cell Count 16.66 K/mm3 (4.00-11.30)
[2020-05-20 04:47] LABS: Prothrombin Time Results 20.6 Sec (9.7-11.5)
[2020-05-20 04:52] LABS: Bun/Creatinine Ratio 45.9 (12.0-20.0); Calcium, Blood 8.4 mg/dL (8.5-10.1); Creatinine, Blood 1.22 mg/dL (0.60-1.20); Potassium, Blood 4.7 mmol/L (3.5-5.5)
--- NOTE | 2020-05-20 05:03 | NUR ---
SHIFT SUMMARY: DIXIE IS A&OX4. VSS, NO ACUTE EVENTS OVERNIGHT. HE IS ON 4-5 LPM VIA NC. HE DOES DESATURATE WITH AMBULATION AND DURING MEALS. HE HAS BEEN RESTING QUIETLY WITH EYES CLOSED AND EVEN, UNLABORED RESPIRATIONS. HE USES HIS CALL LIGHT APPROPRIATELY. HE IS A ONE PERSON ASSIST TO THE BEDSIDE COMMODE. HE IS TOLERATING PO INTAKE WELL. HE DENIES ANY COMPLAINTS AT THIS TIME. HE IS LYING IN BED WITH HIS CALL LIGHT IN REACH. WILL REPORT TO DAY SHIFT RN.
--- NOTE | 2020-05-20 07:22 | NUR ---
ASSUMED CARE: PT RESTING QUIETLY AT THIS TIME. 4-5L NC. AFIB ON TELE IN LOW 100S. NO ACUTE NEEDS OR CONCERNS AT THIS TIME.
--- NOTE | 2020-05-20 15:58 | NUR ---
PT'S DAUGHTER AT BEDSIDE AND WAS GIVEN UPDATE. DAUGHTER REQUESTED THAT PT GET A HOME HEALTH REFERRAL AT DISCHARGE AND REQUESTS RESOURCES FOR CARE GIVERS. ATTEMPTED TO RELAY TO CARE MANAGEMENT BUT NO ONE AVAILABLE AT THIS TIME. RELAYED TO CHOIRMASTER TO PASS ON PRIOR TO DC. WILL PASS ON TO NIGHT RN WELL.
--- NOTE | 2020-05-20 18:01 | NUR ---
SHIFT SUMMARY: PT HAS BEEN ON 4-5L NC BASED ON CONTINUOUS BIOX. BASELINE IS 3L. DISCUSSED WITH LITHOGRAPHIC PRESS OPERATOR APPRENTICE DAUGHTER'S CONCERNS FOR CAREGIVERS AND HOME HEALTH TO COME TO PT'S HOME SINCE PT'S DAUGHTER LIVES IN [place]. PLAN IS FOR DC IN NEXT 2 DAYS. NO ACUTE NEEDS OR CONCERNS AT THIS TIME.
--- NOTE | 2020-05-21 01:05 | NUR ---
PT COMFORTABLE SLEEPING IN BED. ATTEMPTED TO TITRATE 02 TO 3L N/C AT SLEEP. PT IS 02 SAT AT 92%. WILL CONTINUE TO MONITOR.
--- NOTE | 2020-05-21 02:37 | NUR ---
PT IS AWAKE, SNACKING SOME BREAD AND ORANGE JUICE. HE IS DESATURATING TO 85% ON 4L N/C. HE IS SITTING AT THE EDGE OF THE BED. PT DENIES CHEST PAIN. PT DENIES DISCOMFORT. TITRATED 02 BACK TO 5L WHILE SNACKING. 02 SAT WHEN UP TO 90%. WILL CONTINUE TO MONITOR. PT IS APPEARED COMFORTABLE EATING AT THE MOMENT.
--- NOTE | 2020-05-21 03:58 | NUR ---
SHIFT SUMMARY NO ACUTE CHANGES. PT AOX4. PT CONTINUES USE 4-5L 02, I TRIED TO WEAN PT TO 3L AT SLEEP. O2 SAT REMAIN ON GREATER THAN 92%. DESATURATING WHEN HE WOKE UP AND SNACKING TO 85-89%, BUT PT APPEARS COMFORTABLE SNACKING. PT SLEPT WELL T/O THE SHIFT. HE DENIES CHEST PAIN, NUMBNESS AND TINLGING SENSATION. HE IS TOLERATING CARB DIET. DENIES NAUSEA AND VOMITING. VSS. PT REMAIN ON TELE W/ HR OF 90'S. PT C/O OF ITCHY HAIR SCALP. DRY SHAMPOO/SHOWERCAP GIVEN TO PT. HE FELT BETTER AFTER. CALL LIGHT WITHIN REACH.
[2020-05-21 04:50] LABS: Hematocrit 41.8 % (37.0-53.0); Hemoglobin 12.8 g/dL (13.5-17.5); Mean Corpuscular HGB 31.8 pg (26.0-34.0); Mean Corpuscular HGB Conc 30.6 g/dL (31.5-36.5); Mean Corpuscular Volume 104 fL (80-100); Mean Platelet Volume 9.3 fL (9.1-12.4); NRBC ABSOLUTE 0.02 K/mm3 (0.00-0.02); NRBC Auto 0.1 /100 WBC (0.0-0.2); Platelet Count 220 K/mm3 (150-400); RDW Coefficient Variation 12.9 % (11.7-14.2); RDW Standard Deviation 49.9 fL (35.1-46.3); Red Blood Cell Count 4.02 M/mm3 (4.30-5.90); White Blood Cell Count 15.72 K/mm3 (4.00-11.30)
[2020-05-21 05:02] LABS: International Normalized Ratio 2.89; Prothrombin Time Results 29.1 Sec (9.7-11.5)
[2020-05-21 05:10] LABS: Albumin, Blood 2.5 g/dL (3.4-5.0); Anion Gap -1 mmol/L (6-16); Blood Urea Nitrogen 53 mg/dL (8-24); Bun/Creatinine Ratio 42.4 (12.0-20.0); CO2, Blood 43 mmol/L (21-32); Calcium, Blood 8.6 mg/dL (8.5-10.1); Chloride, Blood 97 mmol/L (98-108); Creatinine, Blood 1.25 mg/dL (0.60-1.20); Glomerular Filtration Rate 58 (60-); Glucose, Blood 116 mg/dL (70-99); Potassium, Blood 4.7 mmol/L (3.5-5.5); Sodium, Blood 139 mmol/L (136-145)
[2020-05-21 05:13] LABS: BAND PERCENT MAN 1 % (0-8); BASOPHILS PERCENT MAN 0 % (0-2); EOSINOPHILS PERCENT MAN 0 % (0-6); MONOCYTES ABSOLUTE MAN 1.25 K/mm3 (0.16-1.47); MONOCYTES PERCENT MAN 8 % (4-13); MYELOCYTE ABSOLUTE MAN 0.15 K/mm3 (0.00-0.00); MYELOCYTE PERCENT MAN 1 % (0-0); SEG NEUTROPHILS PERCENT MAN 90 % (41-73); TOTAL CELLS COUNTED 100
--- NOTE | 2020-05-21 07:04 | NUR ---
recvd report from previous rn isidro, pt sleeping in bed, o2 in place via NC, cont. bioxx with SPO2 at 93% on 3L, bed in lowest position, bed rails up x 2, call light within reach
--- NOTE | 2020-05-21 08:00 | NUR ---
RT with pt
--- NOTE | 2020-05-21 08:25 | NUR ---
Dr sanchez rounding on pt
--- NOTE | 2020-05-21 12:22 | NUR ---
RT provided breathing treatment. this rn called pt's daughter to request she bring pt's hearing aid batteries when she next visits
--- NOTE | 2020-05-21 15:57 | NUR ---
1540- PT'S DAUGHTER VISITING, HAS SOME CONCERNS AND WOULD LIKE AN UPDATE. THIS RN REQUESTED HOSPITALIST TO COME TO PT'S ROOM. 1557- HOSPITALIST IN ROOM WITH RT, PT, AND PT'S DAUGHTER
--- NOTE | 2020-05-21 17:36 | NUR ---
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
--- NOTE | 2020-05-22 05:08 | NUR ---
SHIFT SUMMARY: DIXIE IS A&OX4 WITH SOME MILD CONFUSION NOTED. VSS, NO ACUTE EVENTS OVERNIGHT. HE IS A ONE PERSON STANDBY ASSIST TO THE BATHROOM. HE IS TOLERATING PO INTAKE WELL, FLUID RESTRICTION BEING MAINTAINED. GOOD URINE OUTPUT DURING THE NIGHT. 2 L VIA NC DURING SLEEP, NO WITNESSED APNEIC EPISODES THIS SHIFT. HE USES THE CALL LIGHT APPROPRIATELY. HE IS LYING IN BED WITH THE CALL LIGHT IN REACH. WILL REPORT TO DAY SHIFT RN.
[2020-05-22 05:36] LABS: BASOPHILS ABSOLUTE AUTO 0.05 K/mm3 (0.00-0.23); BASOPHILS PERCENT AUTO 0 % (0-2); EOSINOPHILS ABSOLUTE AUTO 0.01 K/mm3 (0.00-0.68); EOSINOPHILS PERCENT AUTO 0 % (0-6); Hematocrit 42.2 % (37.0-53.0); Hemoglobin 12.8 g/dL (13.5-17.5); IMMATURE GRAN ABSOLUTE AUTO 0.31 K/mm3 (0.00-0.10); IMMATURE GRAN PERCENT AUTO 2 % (0-1); LYMPHOCYTES ABSOLUTE AUTO 0.32 K/mm3 (0.84-5.20); LYMPHOCYTES PERCENT AUTO 2 % (21-46); MONOCYTES ABSOLUTE AUTO 1.64 K/mm3 (0.16-1.47); MONOCYTES PERCENT AUTO 11 % (4-13); Mean Corpuscular HGB 31.3 pg (26.0-34.0); Mean Corpuscular HGB Conc 30.3 g/dL (31.5-36.5); Mean Corpuscular Volume 103 fL (80-100); Mean Platelet Volume 9.1 fL (9.1-12.4); NEUTROPHILS ABSOLUTE AUTO 12.51 K/mm3 (1.96-9.15); NEUTROPHILS PERCENT AUTO 84 % (41-73); NRBC ABSOLUTE 0.02 K/mm3 (0.00-0.02); NRBC Auto 0.1 /100 WBC (0.0-0.2); Platelet Count 205 K/mm3 (150-400); RDW Standard Deviation 49.6 fL (35.1-46.3); Red Blood Cell Count 4.09 M/mm3 (4.30-5.90); White Blood Cell Count 14.84 K/mm3 (4.00-11.30)
[2020-05-22 05:48] LABS: International Normalized Ratio 3.12; Prothrombin Time Results 31.3 Sec (9.7-11.5)
[2020-05-22 05:53] LABS: Albumin, Blood 2.6 g/dL (3.4-5.0); Anion Gap -1 mmol/L (6-16); Blood Urea Nitrogen 49 mg/dL (8-24); Bun/Creatinine Ratio 44.5 (12.0-20.0); CO2, Blood 43 mmol/L (21-32); Calcium, Blood 8.6 mg/dL (8.5-10.1); Chloride, Blood 98 mmol/L (98-108); Glomerular Filtration Rate >60 (60-); Glucose, Blood 86 mg/dL (70-99); Phosphorus, Blood 3.1 mg/dL (2.5-4.9); Potassium, Blood 4.9 mmol/L (3.5-5.5); Sodium, Blood 140 mmol/L (136-145)
--- NOTE | 2020-05-22 07:25 | NUR ---
recvd report from previous shift RN Rebeca, pt sleeping in bed, SPO2 94% on 3l, HR 94 while sleeping, bed in lowest position with head of bed elevated, call light within reach, bed rails up x 2
--- NOTE | 2020-05-22 11:11 | NUR ---
0830- DR BRASHER AND CHEMIST PROTEINS ROUNDING ON PT; DISCUSSED POSSIBLE DC TOMORROW 0930-PT WORKING WITH PATIENT, AMBULATING IN HALLWAY 1030-PATIENT ON COMMODE, PURSED LIP BREATHING, NO SOB, ON 4L NC WITH SPO2 >90%
--- NOTE | 2020-05-22 16:25 | NUR ---
1550- day care aide Krishna speaking with pt and pt's daughter 1620-palliative care in with pt/daughter
--- NOTE | 2020-05-22 17:14 | NUR ---
shift summary: vss, no acute changes, spo2 remained >88% while lying/sitting in bed on NC 3-5L. PT evaluation/tx this shift, pt walked in hallway with physical therapist. SOB with exertion. pt tolerated PO INTAKE WITH NO N/V, REPORTS NO PAIN. PT VOIDED AND REPORTS NO BM, PASSING FLATUS. PT WAS A BLE TO PRODUCE SPUTUM SAMPLE, SENT TO LAB. PT'S DAUGHTER VISITING. AESTHETICS INSTRUCTOR/PALLIATIVE CARE HAVE ALL VISITED WITH PT AND FAMILY.
--- NOTE | 2020-05-22 17:50 | NUR ---
Spoke with Bedside VI Wallace and Caremanager Krishna prior to visit. Discussed case and concerns. Pt resting in bed upon arrival and is AKUTAN. Pt's daughter at bedside. Engaged in therapeutic listening and answered questions. Pt lives at home and receives caregiver support but Pt states caregivers do not provide any care. Listened as Pt reports concerns and axiety at the thought of losing his independence. Daughter discusses concerns of Pt having a dirty house with lots of dust. Educated on disease process including trajectory of disease. Discussed the importance of having routine conversations with PCP and devleoping multiple plans as disease process takes its coarse. Discussed CPR and considering completing POLST/AD. Educated on life sustaining treatments including risk factors and implications. Daughter states Pt [facility]. Answered questions and continued therapeutic listening. Spoke with Bedside VI Wallace and discussed case. [facility]ed [facility]POL[facility]. Palliative Care will remain available.
[2020-05-23 05:38] LABS: International Normalized Ratio 2.94; Prothrombin Time Results 29.6 Sec (9.7-11.5)
--- NOTE | 2020-05-23 16:41 | NUR ---
Spoke with Pt's daughter Emerald out in the [place]. Discussed plan for Pt to consider completing POLST/AD. [facility] is vague in Pt's wishes. Emerald is agreeable. Pt resting in bed upon arrival. Pt appears mildy dyspneic as evidenced by work of breathing. Pt uses deep breathing exercise to assist with SOB. Daughter Emerald at bedside. Engaged in therapeutic discussion regarding considering completing advanced directive and POLST. Pt is agreeable. Educated on life sustaining measures and each section to complete. Discussed several ways to ensure Pt's understanding of advanced directive. Educated on life sustaining treatments and each section to complete on POLST. Also discussed several ways to ensure Pt's understanding. Pt signs POLST with wishes for DNR and Limited Treatment. Spoke with Jewelry Dipperdarien Lorenzo with request for notary. Pt and daughter express appreciation of visit and report no other concerns at this time. Spoke with Bedside VI Romano and discussed case. Rosalina will call Dr Tolbert for code status change. Plan: Will obtain copy of POLST upon MD signature and deliver to medical records. Palliative Care will remain available.
--- NOTE | 2020-05-23 17:15 | NUR ---
DR. SEGURA NOTIFIED THAT PT WISHES TO BE A DNR. CODE STATUS CHANGED PER PT REQUEST. DR. SEGURA NOTIFIED THAT PT COMPLETED POLST FORM WITH PALLIATIVE CARE AND REQUESTED TO SIGN IT WHEN SHE ROUNDS ON PT AGAIN. ALSO REQUESTED THAT TELE AND IV BE REMOVED. WILL REMOVE PER DR. SEGURA'S ORDER.
--- NOTE | 2020-05-23 17:39 | NUR ---
Spiritual care note: Met with Meño and his dtr. Reviewed advanced directive and Meño expressed agreement with completed form. Document notarized and several copies made for dtr. One copy placed in chart as it is after hours for Medical Records.
--- NOTE | 2020-05-23 18:13 | NUR ---
SHIFT SUMMARY PT REMAINS IN THE HOSPITAL FOR COPD EXACERBATION. PT IS ON 4-5L BASELINE AND IS MAINTAINING BASELINE. PT IS A SBA IN THE ROOM. PLAN FOR POSSIBLE DISCHARGE TOMORROW. VSS. WILL MONITOR UNTIL REPORT TO ONCOMING RN.
--- NOTE | 2020-05-24 01:33 | NUR ---
REPORT GIVEN TO VI ARRIETA.
--- NOTE | 2020-05-24 01:44 | NUR ---
assumed care of pt following report from previous RN. Pt sleeping in bed, 3l NC, cont bioxx showing 92%, bed in lowest position, call light within reach, bed rails up x 2
--- NOTE | 2020-05-24 04:53 | NUR ---
shift summary: vs remain consistent to pt's baseline, 4L NC with SPO2 >90%, has been independent to the commode this shift, is a/o x 4, pleasant/cooperative, tolerating PO intake, appears to be sleeping on rounding, awakens easily, denies pain, denies n/v. Expected DC home with HH today.
[2020-05-24 05:13] LABS: International Normalized Ratio 2.26; Prothrombin Time Results 23.1 Sec (9.7-11.5)
--- NOTE | 2020-05-24 08:25 | NUR ---
pt oob on bsc finished eating breakfast inc o2 to [address] [place] by to see pt hoa d/c today
--- NOTE | 2020-05-24 11:29 | NUR ---
rt by to see pt getting neb tx
--- NOTE | 2020-05-24 12:05 | NUR ---
PT EATING LUNCH SITTING UP ON EDGE OF THE BED
--- NOTE | 2020-05-24 13:58 | NUR ---
family at bedside spring encaser message left re poss d/c
--- NOTE | 2020-05-24 15:30 | NUR ---
dr balbuena called re discharge h/h
[2020-05-24] MEDS ORDERED: WARF2.5 PO (15:50)
[2020-05-24] MEDS ORDERED: LANOXIN125 MCG PO (15:51)
[2020-05-24] MEDS ORDERED: Prednisone10 MG PO ×2 (15:53→15:54)
--- NOTE | 2020-05-24 16:48 | NUR ---
discharge instructions reviewed with pt and daughter rx called to [facility] no acute changes wc escort to car
== END 2020-05-24 17:07 | disposition home health service (06) | DRG 291 ==
LOC: ER 12:33 → PCU 15:19 → SURS 05-19 17:11
PROVIDERS: Emergency Medicine; Family Medicine; Internal Medicine; Nurse Practitioner Acute Care; Pharmacist; ADMIT Internal Medicine
DX: I11.0 Hypertensive heart disease with heart failure (principal); J18.9 Pneumonia, unspecified organism; J96.22 Acute and chronic respiratory failure with hypercapnia; J96.21 Acute and chronic respiratory failure with hypoxia; J44.0 Chronic obstructive pulmonary disease with (acute) lower respiratory infection; J44.1 Chronic obstructive pulmonary disease with (acute) exacerbation; I48.20 Chronic atrial fibrillation, unspecified; N17.9 Acute kidney failure, unspecified; D68.9 Coagulation defect, unspecified; I50.33 Acute on chronic diastolic (congestive) heart failure; D72.829 Elevated white blood cell count, unspecified; T38.0X5A Adverse effect of glucocorticoids and synthetic analogues, initial encounter; N40.0 Benign prostatic hyperplasia without lower urinary tract symptoms; Z79.01 Long term (current) use of anticoagulants; Z90.2 Acquired absence of lung [part of]; R53.81 Other malaise
CPT/HCPCS: 0241U; 36415; 71045; 71046; 80048; 80053; 80069; 82803; 83605; 83735; 83880; 84100; 84145; 84484; 85025; 85610; 87040; 87070; 87205; 93005; 93010; 93306; 94640; 94660; 94667; 94760; 94762; 96365; 96367; 96375; 97116; 97162; 97164; 99285-25; A9270; J0456; J0696; J1940; J2930; J7050; J7512

== ENCOUNTER 2020-05-25 19:06 | Inpatient (IN) | payer OTHER ==
[~2020-05-25] VITALS: Ht 175.3 cm; Wt 75.8 kg
[~2020-05-25 19:06] MED LIST changes: +LEVOTHYROXINE75 MC1 PO; +WARF2.5 PO
[2020-05-25 20:33] LABS: BASOPHILS ABSOLUTE AUTO 0.03 K/mm3 (0.00-0.23); BASOPHILS PERCENT AUTO 0 % (0-2); EOSINOPHILS PERCENT AUTO 0 % (0-6); Hemoglobin 14.2 g/dL (13.5-17.5); IMMATURE GRAN ABSOLUTE AUTO 0.26 K/mm3 (0.00-0.10); IMMATURE GRAN PERCENT AUTO 1 % (0-1); LYMPHOCYTES PERCENT AUTO 1 % (21-46); MONOCYTES ABSOLUTE AUTO 0.43 K/mm3 (0.16-1.47); MONOCYTES PERCENT AUTO 2 % (4-13); Mean Corpuscular HGB Conc 30.9 g/dL (31.5-36.5); Mean Corpuscular Volume 104 fL (80-100); Mean Platelet Volume 9.8 fL (9.1-12.4); NEUTROPHILS ABSOLUTE AUTO 20.23 K/mm3 (1.96-9.15); NEUTROPHILS PERCENT AUTO 96 % (41-73); Platelet Count 199 K/mm3 (150-400); RDW Standard Deviation 49.7 fL (35.1-46.3); Red Blood Cell Count 4.44 M/mm3 (4.30-5.90); White Blood Cell Count 21.15 K/mm3 (4.00-11.30)
[2020-05-25 20:45] LABS: pH Blood Arterial 7.39 (7.35-7.45)
[2020-05-25 20:46] LABS: Alanine Aminotransfer (ALT/SGP 62 U/L (12-78); Albumin, Blood 2.8 g/dL (3.4-5.0); Albumin/Globulin Ratio 0.8 (0.8-1.8); Alk Phos 110 U/L (50-136); Anion Gap 1 mmol/L (6-16); Aspartate Aminotrans (AST/SGOT 33 U/L (12-37); Bilirubin, Total 0.7 mg/dL (0.1-1.0); Blood Urea Nitrogen 38 mg/dL (8-24); Bun/Creatinine Ratio 34.9 (12.0-20.0); CO2, Blood 42 mmol/L (21-32); Calcium, Blood 8.7 mg/dL (8.5-10.1); Chloride, Blood 95 mmol/L (98-108); Creatinine, Blood 1.09 mg/dL (0.60-1.20); Globulin, Blood 3.4 g/dL (2.2-4.0); Glomerular Filtration Rate >60 (60-); Glucose, Blood 188 mg/dL (70-99); Potassium, Blood 5.2 mmol/L (3.5-5.5); Sodium, Blood 138 mmol/L (136-145); Total Protein, Blood 6.2 g/dL (6.4-8.2); Troponin I 0.029 ng/mL (0.000-0.040)
[2020-05-25 20:46] LABS: PCO2 Arterial 71.4 mmHg (35-45); PO2 Arterial 129 mmHg (80-100)
[2020-05-25 20:52] LABS: International Normalized Ratio 1.44; Prothrombin Time Results 15.1 Sec (9.7-11.5)
[2020-05-25 21:01] LABS: Digoxin (Lanoxin) 0.62 ug/mL (0.80-2.00)
[2020-05-26 00:11] LABS: Influenza A, PCR NEGATIVE (NEGATIVE); Influenza B, PCR NEGATIVE (NEGATIVE); Resp Syncytial Virus, PCR NEGATIVE (NEGATIVE); SARS-Cov-2 (COVID-19) PCR, MMC NEGATIVE (NEGATIVE)
[2020-05-26 02:02] LABS: BASOPHILS ABSOLUTE AUTO 0.03 K/mm3 (0.00-0.23); BASOPHILS PERCENT AUTO 0 % (0-2); EOSINOPHILS PERCENT AUTO 0 % (0-6); Hematocrit 41.9 % (37.0-53.0); Hemoglobin 13.2 g/dL (13.5-17.5); IMMATURE GRAN PERCENT AUTO 1 % (0-1); LYMPHOCYTES ABSOLUTE AUTO 0.29 K/mm3 (0.84-5.20); LYMPHOCYTES PERCENT AUTO 2 % (21-46); MONOCYTES PERCENT AUTO 5 % (4-13); Mean Corpuscular HGB Conc 31.5 g/dL (31.5-36.5); Mean Corpuscular Volume 102 fL (80-100); Mean Platelet Volume 9.7 fL (9.1-12.4); NEUTROPHILS ABSOLUTE AUTO 16.03 K/mm3 (1.96-9.15); NEUTROPHILS PERCENT AUTO 92 % (41-73); Platelet Count 177 K/mm3 (150-400); RDW Coefficient Variation 12.8 % (11.7-14.2); RDW Standard Deviation 47.8 fL (35.1-46.3); Red Blood Cell Count 4.12 M/mm3 (4.30-5.90); White Blood Cell Count 17.45 K/mm3 (4.00-11.30)
[2020-05-26 02:03] LABS: Anion Gap -2 mmol/L (6-16); Blood Urea Nitrogen 38 mg/dL (8-24); Bun/Creatinine Ratio 37.6 (12.0-20.0); CO2, Blood 43 mmol/L (21-32); Calcium, Blood 8.8 mg/dL (8.5-10.1); Chloride, Blood 98 mmol/L (98-108); Creatinine, Blood 1.01 mg/dL (0.60-1.20); Glomerular Filtration Rate >60 (60-); Glucose, Blood 95 mg/dL (70-99); Sodium, Blood 139 mmol/L (136-145)
--- NOTE | 2020-05-26 07:13 | NUR ---
SHIFT SUMMARY PT ARRIVED TO THE UNIT AROUND 0100. PT WAS ALERT AND ORIENTED AND COOPERATIVE WITH CARE. HE WAS ON 5LPM VIA NC WITH O2 SATS >98%, O2 REDUCED TO 2LPM AND O2 SATS REMAINED >90% T/O SHIFT. PT UP TO BSC AND O2 SATS DROPPED TO 80'S, QUICKLY RETURNING TO 90'S WHEN PT RELAXED. BP AND HR REMAINED STABLE T/O SHIFT. PT HAD A QUIET UNEVENTFUL NIGHT.
--- NOTE | 2020-05-26 09:59 | NUR ---
ASSUMED CARE OF PT, REPORT RCV'D FROM VI BETH. PT ALERT AND ORIENTED. SATS 97-99% ON 2L NC, O2 SATS DROP TO 93-94% WITH EXERTION. PT BECOMED TACHYPNEIC BUT MAINTAINS SATS WHEN ASSISTED TO DANGLE AT BEDSIDE. PT HAS GOOD APPETITE, CARDIAC DIET IN PLACE. PT CHANGED TO MEDICAL STATUS WITH TELE PER DR. SEGURA. 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 PER PT, DURING PREVIOUS HOSPITAL ADMISSION (05-13-05/24) PT HAD PERIPHERAL IV THAT INFILTRATED. DR. SEGURA MADE AWARE. PT CHRONIC AFIB. VSS. SEE FULL SHIFT ASSESSMENT.
[2020-05-26 10:33] LABS: Base Excess Venous 16.6 mmol/L; PCO2 Venous 68.8 mmHg (38-42); PO2 Venous 66.7 mmHg (38-42); pH Blood Venous 7.39 (7.34-7.37)
--- NOTE | 2020-05-26 15:28 | NUR ---
MIDSHIFT SUMMARY PT'S SATS REMAIN IN UPPER 90'S ON 2L NC. PT ABLE TO HAVE CONVERSATION AND EAT FOOD WHILE MAINTAINING SATS>90%. PT DEMONSTRATES PURSE LIPPED BREATHING AND TACHYPNEIC AT REST, PT ENCOURAGED TO SLOW BREATHING AND TAKE BREATHS THROUGH NOSE. PT COACHABLE BUT RESORTS BACK TO PURSED LIP BREATHING. PT ABLE TO STAND AND PIVOT WITH 1-PERSON ASSIST TO BEDSIDE COMMODE. PT TOLERATED WELL AND ABLE TO MAINTAIN SATS>95% ON 2L NC. WHEN PT FINISHED ON COMMODE PT STATES HE FEELS "TOO WEAK" TO GET BACK IN BED. PT REQUIRED 2-PERSON ASSIST TO GET BACK IN BED, SATS DROPPED TO MID TO UPPER 80% AND REQUIRED INCREASE OF OXYGEN TO 4L. AT THIS TIME PT'S DAUGHTER HARRIET AT BEDSIDE IN MEETING WITH CARE MANAGEMENT AND HOME HEALTH LIASON. PT AND FAMILY DENY NEEDS AT THIS TIME. O2 DECREASED BACK TO 2L NC, SATS 95% AT THIS TIME.
[2020-05-26] MEDS ORDERED: HYDR10 PO (16:31)
[2020-05-26] MEDS ORDERED: LOSA50 PO (16:32)
[2020-05-26] MEDS ORDERED: DULERA 100 MCG/13 GM INH (16:34)
[2020-05-26] MEDS ORDERED: STRIVERDI RESPIM4 G1 INH (16:35)
[2020-05-26] MEDS ORDERED: OXYM.05NI (16:36)
[2020-05-26] MEDS ORDERED: KLOR-CON 1010 MEQ PO (16:37)
[2020-05-26] MEDS ORDERED: WARF5 PO (16:41)
--- NOTE | 2020-05-26 18:33 | NUR ---
SHIFT SUMMARY NO ACUTE CHANGES THIS SHIFT. PT REMAINS ON 2L NC WITH SATS 96%. PT HAS GOOD APPETITE, DENIES NEED T/O SHIFT. PT CONTINUES TO PURSE LIP BREATHE DESPITE SATS IN THE MID 90'S. PER PT'S DAUGHTER PT APPEARS TO BREATHE IN THIS MANNER "HABIT". PT APPEARS OCCASIONALLY ANXIOUS AND OVERWHELMED. PT EASILY REDIRECTABLE AND ABLE TO USE FOCUSED BREATHING TO DECREASE RR. WILL REPORT TO ONCOMING NURSE.
[2020-05-27 03:33] LABS: BASOPHILS ABSOLUTE AUTO 0.03 K/mm3 (0.00-0.23); BASOPHILS PERCENT AUTO 0 % (0-2); EOSINOPHILS ABSOLUTE AUTO 0.04 K/mm3 (0.00-0.68); EOSINOPHILS PERCENT AUTO 0 % (0-6); Hematocrit 43.9 % (37.0-53.0); Hemoglobin 13.5 g/dL (13.5-17.5); IMMATURE GRAN ABSOLUTE AUTO 0.14 K/mm3 (0.00-0.10); IMMATURE GRAN PERCENT AUTO 1 % (0-1); LYMPHOCYTES ABSOLUTE AUTO 0.62 K/mm3 (0.84-5.20); LYMPHOCYTES PERCENT AUTO 5 % (21-46); MONOCYTES PERCENT AUTO 11 % (4-13); Mean Corpuscular HGB 31.8 pg (26.0-34.0); Mean Corpuscular HGB Conc 30.8 g/dL (31.5-36.5); Mean Corpuscular Volume 104 fL (80-100); Mean Platelet Volume 9.6 fL (9.1-12.4); NEUTROPHILS ABSOLUTE AUTO 11.11 K/mm3 (1.96-9.15); NEUTROPHILS PERCENT AUTO 83 % (41-73); Platelet Count 179 K/mm3 (150-400); RDW Coefficient Variation 13.1 % (11.7-14.2); RDW Standard Deviation 49.7 fL (35.1-46.3); Red Blood Cell Count 4.24 M/mm3 (4.30-5.90); White Blood Cell Count 13.44 K/mm3 (4.00-11.30)
[2020-05-27 03:48] LABS: International Normalized Ratio 1.45; Prothrombin Time Results 15.2 Sec (9.7-11.5)
[2020-05-27 03:57] LABS: Albumin, Blood 2.6 g/dL (3.4-5.0); Anion Gap 1 mmol/L (6-16); Blood Urea Nitrogen 37 mg/dL (8-24); Bun/Creatinine Ratio 32.7 (12.0-20.0); CO2, Blood 43 mmol/L (21-32); Calcium, Blood 8.9 mg/dL (8.5-10.1); Chloride, Blood 98 mmol/L (98-108); Creatinine, Blood 1.13 mg/dL (0.60-1.20); Glomerular Filtration Rate >60 (60-); Glucose, Blood 87 mg/dL (70-99); Phosphorus, Blood 3.7 mg/dL (2.5-4.9); Potassium, Blood 5.3 mmol/L (3.5-5.5); Sodium, Blood 142 mmol/L (136-145)
--- NOTE | 2020-05-27 05:25 | NUR ---
SHIFT SUMMARY PATIENT PLEASENT AND COOPERATIVE THROUGHOUT THE NIGHT. PATIENT HAD ONE EPISODE OF SHORTNESS OF BREATH AT THE BEGINNING OF THE SHIFT AND ALLOWED THE BIPAP TO BE PLACED FOR APPROX 30 MINUTES. PATIENT REPORTED RELIEF FROM SHORTNESS OF BREATH WITH THE USE OF THE BIPAP BUT THEN REQUESTED TO GO BACK ON TO THE NASAL CANNULA WHEN HE STARTED FEELING BETTER. PATIENT HAS BEEN OFF THE BIPAP THROUGHOUT THE REST OF THE NIGHT. PATIENT ON 2-5L O2. PATIENT APPEARED TO SLEEP WELL THROUGHOUT MOST OF THE NIGHT. WILL CONTINUE CURRENT PLAN OF CARE AND REPORT TO ONCOMING RN.
--- NOTE | 2020-05-27 14:38 | NUR ---
FAMILY PT'S DAUGHTER IN THE ROOM AT THIS TIME, SHE HAS BEEN UPDATED ON PT'S STATUS & HOW HE DID THROUGH THE NIGHT. PT IS CURRENTLY RESTING COMFORTABLY, CPAP IS ON, RESP UNLABORED, SPO2 >92%, RESP 26-32. CALL LIGHT IN REACH
--- NOTE | 2020-05-27 16:00 | NUR ---
TRANSFER PT TRANSFERED TO ROOM 339 ON MEDICAL FLOOR, REPORT GIVEN TO ALEXIA LEBRON. PT IS AWAKE, ALERT & ORIENTED X3, VSS, RESP UNLABORED, O2 VIA NC @ 4L, SPO02 >95%. PT'S DAUGHTER IS WITH HIM & ASSISTED WITH GATHERING HIS BELONGINGS FROM THE ROOM. D/S ACUTE DIALYSIS NURSE IN TO SPEAK WITH HER PRIOR TO LEAVING THE UNIT.
--- NOTE | 2020-05-27 17:08 | NUR ---
ASSUMED CARE OF PATIENT UPON HIS ARRIVAL FROM ICU AT 1605 VIA W/C. PT IS ALERT, NOT ANSWERING QUESTIONS. AND IS HAVING DIFFICULTY SWALLOWING. DAUGHTER HARRIET STATED THAT HE WAS CONVERSING NORMALLY AT LUNCH TIME. PT SITTING ON EDGE OF BED, HANDS CLENCHED AND ROTATED INWARD. PUPILS ARE EQUAL, 2 MM. CAN FOLLOW DIRECTIONS WITH SEVERAL SECOND DELAY. WHEN ASKED IF HE WAS HAVING PAIN, HE NODDED YES, AND YES AGAIN WHEN ASKED IF IT WAS CHEST PAIN, ABLE TO ANSWER "PRESSURE." CAN SMILE, BUT CANNOT STICK TONGUE OUT, IS MOVING LIPS THOUGH HE WERE EATING. DR. CAROLINA NOTIFIED, CAME TO BEDSIDE TO EVALUATE. ORDERED BABY ASA, ECG, TROPONINS X 2, AND NON CONTRAST HEAD CT. PT OFF TO CT SCAN AT THIS TIME.
--- NOTE | 2020-05-27 18:45 | NUR ---
SHIFT SUMMARY: HEAD CT COMPLETE. AT THIS TIME, PATIENT IS MORE ALERT, ABLE TO CONVERSE, AND IS DRINKING SIPS OF ENSURE AND EATING SMALL AMOUNT OF DINNER, WAS ABLE TO SWALLOW HIS COUMADIN. DAUGHTER HARRIET AT BEDSIDE, WANTS TO MAKE SURE PT IS OK BEFORE SHE LEAVES. O2 SAT REMAINS 93-95% ON 4 L/MIN NC; STILL C/O CHEST DISCOMFORT WHEN BREATHING, POSSIBLY PLEURITIC D/T COUGHING OR CPAP. TROPONIN LEVEL NOT ELEVATED.
--- NOTE | 2020-05-27 19:55 | NUR ---
05/27/201914 DAYSHIFT RN GAVE REPORT ON CHANGE IN PT HEALTH/MENTAL STATUS AFTER TRANSFERRED TO FLOOR FROM ICU. DAUGHTER AND CAREGIVER AT BEDSIDE AND CONFIRM THAT PT IS "DIFFERENT". PT GRIPPING DAUGHTER WITH RT HAND. PT DENIES ANY DISCOMFORT. LISSETH. NO FACIAL DEFICITS. ALERT TO SELF,FAMILY AND PLACE. HAND INDUSTRIAL MAINTENANCE TECHNICIAN STRONG. CONT. PULSE OX WITH O2 SATS = 91% ON O2 AT 2LPM VIA N/C. HEART MONITOR SHOW "ATRIAL FIB AT 102." INFORMED FAMILY THAT I WOULD CONTACT ON-CALL MD ON PRESENT INFO.
--- NOTE | 2020-05-27 20:04 | NUR ---
05/27/201954 SEE ORDERS FROM . RN NOTIFIED RESP.CARE, LUIS OF RESP. ORDERS.
[2020-05-27 20:12] LABS: PCO2 Arterial 74.2 mmHg (35-45); PO2 Arterial 79.1 mmHg (80-100); pH Blood Arterial 7.39 (7.35-7.45)
--- NOTE | 2020-05-28 00:50 | NUR ---
05/28/20 0050 CAREGIVER JUST LEFT. PT SLEEPING ON AND OFF. TAKING SIPS OF ENSURE WITH SUPERVISION. CONT. PULSE OX WITH O2 SAT AT 96% ON 3LPM. BED ALARM ON.
--- NOTE | 2020-05-28 03:54 | NUR ---
05/28/20 0350 ASSISTED PT TO BSC FOR VOID AND "POSSIBLE POOP". PT UPSET WITH CAREGIVER NOT BEING HERE TO ASSIST WITH CARE. INFORMED PT THAT SHE WENT HOME EARLIER. PT IRRITATED WITH RN FOR NOT KNOWING HIS ROUTINE CARE. INFORMED HIM THAT STAFF CAN ASSIST WITH CARE BUT BECAME ANGRY. PT SAT UP ON BSC FOR 25 MINUTES TO VOID.
[2020-05-28 05:40] LABS: International Normalized Ratio 1.36; Prothrombin Time Results 14.3 Sec (9.7-11.5)
--- NOTE | 2020-05-28 10:10 | NUR ---
PT A&O X 2, SITTING UPRIGHT IN BED. ATTEMPTED TO FEED PT BREAKFAST, BUT HE WAS UNABLE TO SWALLOW EVEN SMALL BITES OF SCRAMBLED EGG. DELAYED SWALLOW WITH COFFEE AND WATER. ATTEMPTED TO ADMINISTER PILLS, CRUSHED IN APPLESAUCE AND WHOLE; CHEWED ONE WHOLE AND HAD DIFFICULTY SWALLOWING WHEN CRUSHED IN APPLESAUCE. ORAL CAVITY IS SWOLLEN, MOIST, WITH SMALL ABRASIONS ON HARD PALATE. ONLY HAS [address] CAROLINA, REQUESTED THAT WHAT MEDS CAN BE CHANGED TO IV. WILL CONTINUE TO MONITOR.
--- NOTE | 2020-05-28 11:50 | NUR ---
PATIENT SITTING UPRIGHT IN BED IN TRIPOD POSITION, GRIPPING SIDERAILS. RR 45 AND SHALLOW, O2 SAT 92% ON 4 L/MIN NC, BUT PT AGITATED AND CONFUSED. ADMINISTERED ATIVAN IV PER ORDERS. PATIENT BECAME MORE CALM, RR DECREASED TO 28-32. PLACED ON BIPAP WITH 4 L/MIN O2 BLEED IN.
--- NOTE | 2020-05-28 12:45 | NUR ---
PT AWAKE AND ALERT AFTER BEING PLACED ON BIPAP. SITTING UPRIGHT IN BED, STATING HE'S HUNGRY. TRIED SIPS OF WATER WHICH HE MANAGED WITHOUT DIFFICULTY. PLACED LUNCH TRAY IN FRONT OF HIM AND HE BEGAN TO EAT, EDUCATED HIM TO TAKE SMALL BITES. NO COUGHING OR CHOKING OBSERVED. FINISHED ENTIRE MEAL WITHOUT DIFFICULTY, STATED THE FOOD WAS "EXCELLENT." OFFERED URINAL, HE STATED HE WANTED TO GET UP TO BR. PLACED EXTENSION TUBING ON O2, USING FWW HE AMBULATED FROM BED TO BR AND WAS EDUCATED TO PULL WALL CORD WHEN COMPLETE. THIS AUTHOR STAYED IN ROOM IN CASE OF DIFFICULTY, BUT HE DID FINE. AMBULATED BTB WITH FWW, NO PROBLEMS NOTED, GAIT STEADY. URINATED, NO BM. SETTLED BACK IN BED, PLACED ON BIPAP 16/ WITH 4 L/MIN BLED IN. CALL LIGHT AND BELONGINGS IN REACH.
--- NOTE | 2020-05-28 15:03 | NUR ---
PT'S DAUGHTER ARRIVED FOR VISIT, HAS MANY QUESTIONS. DR. CAROLINA AT BEDSIDE AT THIS TIME. NEW ORDER FOR ABX.
--- NOTE | 2020-05-28 18:55 | NUR ---
SHIFT SUMMARY: MENTATION IMPROVED AFTER PERIODS OF TIME ON BIPAP AND UNITERRUPTED REST. ABLE TO EAT DINNER AND SWALLOW PILLS THIS EVENING. DENIES PAIN. AMBULATED TO BR X 2 WITH FWW. GOOD PO INTAKE. DENIED PAIN.
[2020-05-29 05:21] LABS: Hematocrit 41.5 % (37.0-53.0); Hemoglobin 12.6 g/dL (13.5-17.5); Mean Corpuscular HGB 31.5 pg (26.0-34.0); Mean Corpuscular HGB Conc 30.4 g/dL (31.5-36.5); Mean Corpuscular Volume 104 fL (80-100); Mean Platelet Volume 9.5 fL (9.1-12.4); Platelet Count 165 K/mm3 (150-400); RDW Coefficient Variation 13.1 % (11.7-14.2); RDW Standard Deviation 49.3 fL (35.1-46.3); White Blood Cell Count 9.94 K/mm3 (4.00-11.30)
[2020-05-29 05:22] LABS: Base Excess Venous 18.4 mmol/L; Bicarbonate Venous 39.5 mmol/L (24.0-30.0); PCO2 Venous 56.8 mmHg (38-42); PO2 Venous 50.6 mmHg (38-42); pH Blood Venous 7.48 (7.34-7.37)
[2020-05-29 05:38] LABS: International Normalized Ratio 1.64; Prothrombin Time Results 17.1 Sec (9.7-11.5)
[2020-05-29 05:52] LABS: Alanine Aminotransfer (ALT/SGP 45 U/L (12-78); Albumin, Blood 2.5 g/dL (3.4-5.0); Albumin/Globulin Ratio 0.8 (0.8-1.8); Alk Phos 78 U/L (50-136); Anion Gap 1 mmol/L (6-16); Aspartate Aminotrans (AST/SGOT 20 U/L (12-37); Bilirubin, Total 0.4 mg/dL (0.1-1.0); Blood Urea Nitrogen 44 mg/dL (8-24); Bun/Creatinine Ratio 38.3 (12.0-20.0); CO2, Blood 42 mmol/L (21-32); Calcium, Blood 8.7 mg/dL (8.5-10.1); Chloride, Blood 101 mmol/L (98-108); Creatinine, Blood 1.15 mg/dL (0.60-1.20); Globulin, Blood 3.1 g/dL (2.2-4.0); Glomerular Filtration Rate >60 (60-); Glucose, Blood 129 mg/dL (70-99); Potassium, Blood 4.2 mmol/L (3.5-5.5); Sodium, Blood 144 mmol/L (136-145); Total Protein, Blood 5.6 g/dL (6.4-8.2)
--- NOTE | 2020-05-29 07:55 | NUR ---
05/29/20 0600 MUCH BETTER NIGHT FROM YESTERDAY. SLEPT BETTER AND MORE INTERACTIVE WITH STAFF. VITALS AND HEART MONITOR STABLE. MEDICATED ONCE FOR SLIGHT SNXETY. DENIES ANY DISCOMFORT. CPAP ON MOST OF SHIFT WITH ADJUSTMENTS IN O2 RATE DEPENDING ON O2 SATS ON PULSE OXIMETER. VOIDING QS. PRESENTLY AT 5LPM VIA CPAP.
--- NOTE | 2020-05-29 18:42 | NUR ---
SHIFT SUMMARY NO ACUTE CHANGES THIS SHIFT. PATIENT HAS BEEN ALERT, ORIENTED, PLEASANT AND COOPERATIVE WITH CARE. HE IS ANBLE TO MAKE HIS NEEDS KNOWN. PATIENTS O2 HAS BEEN TITRATED DOWN TO 3L AND THAT IS HIS HOME AMOUNT PER PATIENT AND HIS DAUGHTER. PATIENT IS LOOKING FORWARD TO SNF AT [facility] WHEN ACCEPTED FOR PHYSICAL AND OCCUPATIONAL THERAPY. HE HAS BEEN CLEARED BY SPEECH, NO FOLLOW UP NEEDED. PATIENTS DAUGHTER PRESENT AT BEDSIDE, UPDATED HER ON PTS CONDITION. PATIENT SAT AT THE SIDE OF THE BED FOR MEALS, AMBULATES TO THE BATHROOM WITH ONE PERSON ASSIST AND WALKER. USES THE URINAL NEEDED AT THE BEDSIDE. WILL CONT TO MONITOR AND PROVIDE REPORT TO GRINDER OPERATOR SURFACE TOOL RN.
[2020-05-30 05:11] LABS: International Normalized Ratio 1.73; Prothrombin Time Results 17.9 Sec (9.7-11.5)
--- NOTE | 2020-05-30 06:36 | NUR ---
05/30/20 0600 SLEPT WELL WITH BIPAP/CPAP BUT RESP. CARE DID APPLY O3 AT 4LPM VIA N/C MASK WAS HAVING SOME LEAK ISSUES. CONTINOUS PULSE OXIMETER ON ALL SHIFT. VITALS STABLE. HAD ONE BROWN BM THIS SHIFT WITH VOIDING.
--- NOTE | 2020-05-30 15:30 | NUR ---
DAUGHTER AT BEDSIDE. DIXIE HAS BEEN CONFUSED TODAY, DAUGHTER IS CONCERNED BECAUSE THIS ISN'T HIS BASELINE. RR 25. SHE REQUESTED BIPAP BE PLACED. PT PUT BACK IN BED, BIPAP PLACED. DR CAROLINA CALLED AT 1530, HE IS AWARE OF VBG, HE REQUESTS REPEAT VBG IN ONE HOUR. VERBAL ORDER PLACED
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
[2020-05-30 16:34] LABS: Base Excess Venous 18.2 mmol/L; Bicarbonate Venous 39.1 mmol/L (24.0-30.0); PCO2 Venous 59.1 mmHg (38-42); PO2 Venous 45.9 mmHg (38-42); pH Blood Venous 7.46 (7.34-7.37)
--- NOTE | 2020-05-30 18:20 | NUR ---
Supportive Visit Pt is known to this leader writer from last hospital stay. Pt is resting in bed doing deep breathing exercises. Daughter Olivia at bedside. She reports Pt is doing breathing exercises due to his anxiety. Pt appears confused as evidenced by non sensical conversations. Offered therapeutic listening as daughter Emerald discusses concerns. Answered questions and continued therapeutic listening. Emerald does bring up some of the conversations that took place during Pt's last hospital stay. This RN educated on the importance of advanced care planning and education of disease process during his last hospital stay. Emerald expresses appreciation of visit and reports no other concerns at this time. Spoke with Bedside RN Luda and discussed case. Palliative Care will F/U for supportive visits as needed.
--- NOTE | 2020-05-30 18:55 | NUR ---
SHIFT SUMMARY DIXIE IS SHORT OF BREATH THIS SHIFT. OXYGEN TITRATED DOWN TO 2L, HE WAS ON HOME DOSE OF 3-4L AND SATS WERE AT 97%. CALLED DR CAROLINA (SEE PREVIOUS NOTE) ABOUT PT'S TACHYPNEA, HE STATES TO MAKE SURE PT ON BIPAP TONIGHT. DAUGHTER HARRIET AT BEDSIDE. GOT UP TO CHAIR WITH SBA. CONTINENT IN URINAL AND BSC. CONFUSED BUT AWARE HE IS IN THE HOSPITAL, DIFFICULTY SWALLOWING PILLS, GAVE REPORT TO NIGHT NURSE TO CRUSH IN APPLESAUCE. DENIED PAIN. CALL LIGHT IN REACH, BED ALARM ON, REPORT GIVEN TO NIGHT NURSE
--- NOTE | 2020-05-31 04:11 | NUR ---
REHABILITATION WORKER SUMMARY A/O 2-3, SOME CONFUSION NOTED. USE OF BIPAP T/O THE NIGHT, TOLERATING WELL. CONT BIOX IN PLACE, WITH SATS GREATER THAN 92. DENIES PAIN. NO ACUTE CHANGES AT THIS TIME. BED IN LOWEST POSITION WITH CALL LIGHT IN REACH. WILL CONTINUE TO MONITOR AND REPORT TO ONCOMING RN.
[2020-05-31 05:34] LABS: International Normalized Ratio 1.96; Prothrombin Time Results 20.2 Sec (9.7-11.5)
[2020-05-31 12:02] LABS: PCO2 Arterial 65.7 mmHg (35-45); PO2 Arterial 64.2 mmHg (80-100); pH Blood Arterial 7.42 (7.35-7.45)
--- NOTE | 2020-05-31 12:18 | NUR ---
CALLED DR CAROLINA RE BLOOD GAS. WANTS PT O2 SATS 89-90% NO NEW ORDERS
--- NOTE | 2020-05-31 15:09 | NUR ---
Spiritual care visit conducted. Patient's daughter, Olivia, stops me in the hallway and gives me an update on patient's placement status and voices appreciation for the conversation yesterday with this geography teacher. Olivia shares her story during her mom's health battles until she and her determination to finish college and pursue her career. She expresses her concerns about how patient will do the [facility] option does not go through. I reinforce helpful attitudes and practices provide therapeutic listening and a calming presence.
--- NOTE | 2020-05-31 16:15 | NUR ---
Pt sitting in chair upon arrival. Nanci from PT just finished working with Pt. Pt appears moderately confused as evidenced by giving answers unrelated to questions. When asked if he is comfortable Pt responds by speaking about his home. Pt's daughter Olivia at bedside. Offered therapeutic listening and answered questions. Olivia reports [facility] will determine tomorrow if [facility] to [facility]. Olivia expresses appreciation of visit and reports no other concerns at this time. Palliative Care will remain available.
--- NOTE | 2020-05-31 18:23 | NUR ---
PT PLEASSNT TODAY. DAUGHTER IN ROOM MOST OF DAY. NO C/O PAIN. WAS ON BIAP THIS AM. DR HOLDING O2 DOWN TO 89-90% SATS TODAY. IS RETAINING CO2. PT OCC FORGETFUL. IV REPLACED TODAY. NO NEW CONCERNS AT THIS TIME. BED IN LOW POSITION, CALL LITE IN REACH, CALLS APPROP
--- NOTE | 2020-06-01 05:27 | NUR ---
SUMMARY PT HAS REMINED ON BIPAP T/O THE NIGHT. PT SPO2 HAS REMAINED 89%-90% ORDERED. PT HAD NO COMPLAINTS. PT HAS SLEPT WELL T/O SHIFT. PT CURRENTLY SLEEPING AND ON BIPAP. CALL LIGHT IN REACH.
[2020-06-01 06:23] LABS: Hemoglobin 11.4 g/dL (13.5-17.5); Mean Corpuscular HGB 32.2 pg (26.0-34.0); Mean Corpuscular HGB Conc 31.7 g/dL (31.5-36.5); Mean Corpuscular Volume 102 fL (80-100); Mean Platelet Volume 9.7 fL (9.1-12.4); Platelet Count 136 K/mm3 (150-400); RDW Coefficient Variation 13.2 % (11.7-14.2); RDW Standard Deviation 48.9 fL (35.1-46.3); Red Blood Cell Count 3.54 M/mm3 (4.30-5.90)
[2020-06-01 06:40] LABS: International Normalized Ratio 2.12; Prothrombin Time Results 21.7 Sec (9.7-11.5)
[2020-06-01 06:54] LABS: Anion Gap 1 mmol/L (6-16); Blood Urea Nitrogen 31 mg/dL (8-24); Bun/Creatinine Ratio 30.7 (12.0-20.0); CO2, Blood 39 mmol/L (21-32); Calcium, Blood 8.8 mg/dL (8.5-10.1); Chloride, Blood 102 mmol/L (98-108); Creatinine, Blood 1.01 mg/dL (0.60-1.20); Glomerular Filtration Rate >60 (60-); Glucose, Blood 81 mg/dL (70-99); Potassium, Blood 4.3 mmol/L (3.5-5.5); Sodium, Blood 142 mmol/L (136-145)
[2020-06-01 11:34] LABS: Influenza A, PCR NEGATIVE (NEGATIVE); Influenza B, PCR NEGATIVE (NEGATIVE); Resp Syncytial Virus, PCR NEGATIVE (NEGATIVE); SARS-Cov-2 (COVID-19) PCR, MMC NEGATIVE (NEGATIVE)
[2020-06-01] MEDS ORDERED: IPRAT-ALBUT 0.5-3 ML INH (12:57)
[2020-06-01] MEDS ORDERED: Prednisone10 M1 PO (12:57)
--- NOTE | 2020-06-01 13:51 | NUR ---
[facility] TO [facility] . NURSE TO NURSE CALLED AND GAVE REPORT TO RECEIVING NURSE WHOSE NAME I HAVE FORGOTTEN. PT WAS DRESSED WITH OT . HE IS ALERT AND ORIENTED. O2 MAINTAINING 89-90 ON 1 L O2. IV REMOVED , NO SS OF INFECTION NOTED. DAUGHTER AT BEDSIDE THROUGH OUT THE DAY. NO TEACHING NEEDED. PT TO GO TO SNF.
== END 2020-06-01 16:01 | DRG 871 ==
LOC: ER 19:06 → ICUW 23:02 → ER 05-26 00:29 → ICUE 05-26 00:29 → ICUW 05-26 00:29 → MEDS 05-26 00:29 → ICUE 05-26 00:49 → ICUW 05-26 00:49 → ICUE 05-26 09:39 → MEDS 05-27 16:07
PROVIDERS: Emergency Medicine; Family Medicine; Internal Medicine; Nurse Practitioner Acute Care; ADMIT Internal Medicine
DX: A41.9 Sepsis, unspecified organism (principal); J96.21 Acute and chronic respiratory failure with hypoxia; J96.22 Acute and chronic respiratory failure with hypercapnia; J18.9 Pneumonia, unspecified organism; J44.0 Chronic obstructive pulmonary disease with (acute) lower respiratory infection; I50.32 Chronic diastolic (congestive) heart failure; I48.20 Chronic atrial fibrillation, unspecified; I13.0 Hypertensive heart and chronic kidney disease with heart failure and stage 1 through stage 4 chronic kidney disease, or unspecified chronic kidney disease; N18.30 Chronic kidney disease, stage 3 unspecified; Z66 Do not resuscitate; Z51.5 Encounter for palliative care; Z20.822 Contact with and (suspected) exposure to COVID-19; N40.0 Benign prostatic hyperplasia without lower urinary tract symptoms; Z87.891 Personal history of nicotine dependence; Z79.01 Long term (current) use of anticoagulants; Z79.51 Long term (current) use of inhaled steroids
CPT/HCPCS: 0241U; 36415; 36600; 70450; 71045; 80048; 80053; 80069; 80162; 82140; 82803; 83605; 83880; 84145; 84484; 85025; 85027; 85379; 85610; 87040; 92523; 92610; 93005; 93010; 93971; 94640; 94660; 94760; 94762; 96365; 96366; 96375; 97116; 97161; 97165; 97530; 97535; 99285-25; A9270; J0295; J0692; J1160; J1940; J2060; J3370; J7050; J7512

== ENCOUNTER 2020-06-04 20:53 | Observation (INO) | payer OTHER ==
[~2020-06-04] VITALS: Ht 175.3 cm; Wt 72.6 kg
[~2020-06-04 20:53] MED LIST changes: +DULERA 100 MCG/13 GM INH; +IPRAT-ALBUT 0.5-3 ML INH; +KLOR-CON 1010 MEQ PO; +LOSA50 PO; +Prednisone10 M1 PO; +STRIVERDI RESPIM4 G1 INH
[2020-06-04 21:24] LABS: PCO2 Arterial 45.5 mmHg (35-45); PO2 Arterial 72.8 mmHg (80-100); pH Blood Arterial 7.48 (7.35-7.45)
[2020-06-04] MEDS ORDERED: LEVSOD75 PO (21:28)
[2020-06-04] MEDS ORDERED: Pepcid 20 mg Ta20 MG PO (21:29)
[2020-06-04] MEDS ORDERED: ELIQUIS5 MG PO (21:29)
[2020-06-04] MEDS ORDERED: LANOXIN125 MCG PO (21:29)
[2020-06-04] MEDS ORDERED: Prednisone10 MG PO (21:30)
[2020-06-04] MEDS ORDERED: THERA-D2000 UNIT PO (21:30)
[2020-06-04] MEDS ORDERED: FURO40 PO (21:30)
[2020-06-04] MEDS ORDERED: MULVITA PO (21:31)
[2020-06-04] MEDS ORDERED: FINA5 PO (21:31)
[2020-06-04] MEDS ORDERED: DILTIAZEM 24HR360 MG PO (21:31)
[2020-06-04] MEDS ORDERED: Vitamin B-121000 MCG PO (21:33)
[2020-06-04] MEDS ORDERED: Flonase 0.05% N16 GM (21:40)
[2020-06-04] MEDS ORDERED: IPRAT-ALBUT 0.5-3 ML INH (21:40)
[2020-06-04] MEDS ORDERED: B-1100 M1 PO (21:40)
[2020-06-04] MEDS ORDERED: PULMICORT0.5 MG/21 INH (21:43)
[2020-06-04] MEDS ORDERED: TAMS.4ER PO (21:43)
[2020-06-04] MEDS ORDERED: LORA.5 PO (21:46)
[2020-06-04 21:51] LABS: BASOPHILS ABSOLUTE AUTO 0.01 K/mm3 (0.00-0.23); BASOPHILS PERCENT AUTO 0 % (0-2); EOSINOPHILS PERCENT AUTO 0 % (0-6); Hematocrit 41.7 % (37.0-53.0); Hemoglobin 13.5 g/dL (13.5-17.5); IMMATURE GRAN ABSOLUTE AUTO 0.06 K/mm3 (0.00-0.10); IMMATURE GRAN PERCENT AUTO 1 % (0-1); LYMPHOCYTES ABSOLUTE AUTO 0.19 K/mm3 (0.84-5.20); LYMPHOCYTES PERCENT AUTO 2 % (21-46); MONOCYTES PERCENT AUTO 5 % (4-13); Mean Corpuscular HGB 32.4 pg (26.0-34.0); Mean Corpuscular HGB Conc 32.4 g/dL (31.5-36.5); Mean Corpuscular Volume 100 fL (80-100); Mean Platelet Volume 9.5 fL (9.1-12.4); NEUTROPHILS ABSOLUTE AUTO 11.27 K/mm3 (1.96-9.15); NEUTROPHILS PERCENT AUTO 93 % (41-73); Platelet Count 149 K/mm3 (150-400); RDW Coefficient Variation 13.9 % (11.7-14.2); RDW Standard Deviation 50.4 fL (35.1-46.3); Red Blood Cell Count 4.17 M/mm3 (4.30-5.90); White Blood Cell Count 12.13 K/mm3 (4.00-11.30)
[2020-06-04 22:13] LABS: Troponin I 0.039 ng/mL (0.000-0.040)
[2020-06-04 22:14] LABS: Albumin/Globulin Ratio 0.9 (0.8-1.8); Bilirubin, Total 0.6 mg/dL (0.1-1.0); Bun/Creatinine Ratio 31.9 (12.0-20.0); Calcium, Blood 9.2 mg/dL (8.5-10.1); Creatinine, Blood 1.35 mg/dL (0.60-1.20); Globulin, Blood 3.4 g/dL (2.2-4.0); Potassium, Blood 4.1 mmol/L (3.5-5.5); Total Protein, Blood 6.4 g/dL (6.4-8.2)
[2020-06-05 05:26] LABS: BASOPHILS ABSOLUTE AUTO 0.01 K/mm3 (0.00-0.23); BASOPHILS PERCENT AUTO 0 % (0-2); EOSINOPHILS ABSOLUTE AUTO 0.03 K/mm3 (0.00-0.68); EOSINOPHILS PERCENT AUTO 0 % (0-6); Hematocrit 43.7 % (37.0-53.0); IMMATURE GRAN ABSOLUTE AUTO 0.04 K/mm3 (0.00-0.10); IMMATURE GRAN PERCENT AUTO 0 % (0-1); LYMPHOCYTES ABSOLUTE AUTO 0.51 K/mm3 (0.84-5.20); LYMPHOCYTES PERCENT AUTO 4 % (21-46); MONOCYTES ABSOLUTE AUTO 0.87 K/mm3 (0.16-1.47); MONOCYTES PERCENT AUTO 8 % (4-13); Mean Corpuscular HGB 32.4 pg (26.0-34.0); Mean Corpuscular Volume 101 fL (80-100); Mean Platelet Volume 9.5 fL (9.1-12.4); NEUTROPHILS ABSOLUTE AUTO 10.11 K/mm3 (1.96-9.15); NEUTROPHILS PERCENT AUTO 87 % (41-73); Platelet Count 154 K/mm3 (150-400); RDW Coefficient Variation 14.2 % (11.7-14.2); RDW Standard Deviation 51.4 fL (35.1-46.3); Red Blood Cell Count 4.32 M/mm3 (4.30-5.90); White Blood Cell Count 11.57 K/mm3 (4.00-11.30)
[2020-06-05 05:45] LABS: Albumin, Blood 3.2 g/dL (3.4-5.0); Albumin/Globulin Ratio 0.9 (0.8-1.8); Bilirubin, Total 0.9 mg/dL (0.1-1.0); Calcium, Blood 9.1 mg/dL (8.5-10.1); Creatinine, Blood 1.38 mg/dL (0.60-1.20); Globulin, Blood 3.5 g/dL (2.2-4.0); Potassium, Blood 3.7 mmol/L (3.5-5.5); Total Protein, Blood 6.7 g/dL (6.4-8.2)
[2020-06-06 05:35] LABS: Bun/Creatinine Ratio 35.4 (12.0-20.0); Calcium, Blood 9.2 mg/dL (8.5-10.1); Creatinine, Blood 1.47 mg/dL (0.60-1.20); Potassium, Blood 4.1 mmol/L (3.5-5.5)
--- NOTE | 2020-06-06 06:36 | NUR ---
SHIFT SUMMARY PATIENT ALERT AND ORIENTED. HAD NO COMPLAINTS OF PAIN. IS SHORT OF BREATH UPON EXHERTION. DID NOT SLEEP OVERNIGHT, INSTEAD SAT ON HIS BED AND LOOKED THROUGH THE CONTENTS OF HIS BACKPACK TRYING TO FIND HIS SLIPPERS. IV PATENT AND FLUSHED. BED IN LOWEST POSITION WITH WHEELS LOCKED. CALL LIGHT WITHIN REACH. REPORT GIVEN TO ONCOMING RN.
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
[2020-06-07 05:31] LABS: Bun/Creatinine Ratio 37.4 (12.0-20.0); Creatinine, Blood 1.39 mg/dL (0.60-1.20); Potassium, Blood 4.4 mmol/L (3.5-5.5)
--- NOTE | 2020-06-07 07:55 | NUR ---
SHIFT SUMMARY: A&0X3, UP TO THE BATHROOM WITH WALKER, INDEPENDANTLY. NO COMPLAINTS OF PAIN. VSS, NO RESPIRATORY DISTRESS OBSERVED. O2 IS 3-4L AT BASELINE, ON 4L AT THIS TIME, SATS ARE 98-99%.
--- NOTE | 2020-06-07 13:49 | NUR ---
Patient is sitting on EOB and playing with his phone(mostly turning the display screen off and on repeatedly). Patient tells me that he does not have any idea why he is in the hospital or what the plan is for his care. He says that he talks to his duaghters often but only when they call him because he can't get his phone to work to call them. He explains that he is doing good and does not really need anything except to go home. I listen empathically and provide prayer. Patient reponds well and voices appreciation for my visit.
--- NOTE | 2020-06-07 14:20 | NUR ---
Brief supportive visit this afternoon. Pt resting in bed with his eyes closed. Pt opens his eyes with moderate level voice and gentle touch. Pt denies pain at this time. Offered therapeutic llstening as Pt states wishing he had more time to do things on his home. Pt chooses to not elaborate on the things he has planned for the house. Pt reports being tired and this RN ended visit. Will F/U when Pt's daughter arrives to visit. Spoke with PT Bk marcus AM and discussed case. Spoke with [facility] prior to Pt visit and discussed case. Spoke with Dr Rasmussen prior to Pt visit and discussed case.
--- NOTE | 2020-06-07 18:31 | NUR ---
SHIFT SUMMARY PT IS A&O WITH SOME CONFUSION/FORGETFULLNESS. IN THE MORING PT UNABLE TO FIND GLASSES AND BELEIVED HE HAD THEM LOST IN BED BUT WERE FOUND IN HIS BAG. PT IS 1 PERS SBA TO BATHROOM. DENIES P/N/V DURING SHIFT. DURING VISITING HOURS DAUGHTER STATED CONCERN ABOUT PT NOT BEING ABLE TO CHEW FOOD PROPERLY. CALLED AND WAS GIVEN ORDERS TO CHANGE DIET TO MECHANICAL SOFT. PT CURENTLY IN ROOM. WATCHING TV. CALL LIGHT W/IN REACH.
[2020-06-08 05:31] LABS: Anion Gap 0 mmol/L (6-16); Blood Urea Nitrogen 45 mg/dL (8-24); Bun/Creatinine Ratio 40.5 (12.0-20.0); CO2, Blood 38 mmol/L (21-32); Chloride, Blood 106 mmol/L (98-108); Creatinine, Blood 1.11 mg/dL (0.60-1.20); Glomerular Filtration Rate >60 (60-); Glucose, Blood 94 mg/dL (70-99); Potassium, Blood 4.8 mmol/L (3.5-5.5); Sodium, Blood 144 mmol/L (136-145)
--- NOTE | 2020-06-08 06:31 | NUR ---
SHIFT SUMMARY: PATIENT IS CONFUSED THIS SHIFT. GETTING TANGLED IN HIS GOWN AND BLANKETS. SOB WITH ACTIVITY REQUIRING INCREASE IN O2 FROM 3-4L. BED ALARM IS ON.
--- NOTE | 2020-06-08 11:02 | NUR ---
DELTASONE 20MG START TODAY RECEIVED T.O. FROM DR. CARBALLO TO START 20MG DELTASONE TODAY. ORDER UPDATED.
--- NOTE | 2020-06-08 11:43 | NUR ---
Pt resting in bed upon arrival. Bedside RN Joy at bedside offering medications. Pt appears mildly confused as evidenced by delay in processing what to do with medications. After several seconds Pt asks "do you want me to take these"?. Pt takes medications being offered. Pt denies pain at this time. Ended visit in order for Joy to continue assessment. Called and spoke with Pt's daughter Olivia. Engaged in therapeutic listening as Olivia expressed concerns regarding different information being provided. Continued therapeutic listening and answered questions. Discussed hospice as an option. Olivia is requesting this RN to be present during 1500 careteam meeting. No other concerns reported at this time. Plan: Will F/U during careteam meeting.
[2020-06-08 12:15] LABS: Digoxin (Lanoxin) 1.31 ug/mL (0.80-2.00)
--- NOTE | 2020-06-08 16:15 | NUR ---
Meeting with daughter Olivia, Pt's caregiver Margie, Dr Rasmussen, Cici Rodrigues, and this RN. Dr Rasmussen discusses options and concerns for D/C plan. Hospice discussed as an option, as well as placement vs home. Questions answered and concerns addressed. Ravi and this RN remained behind after Dr Rasmussen leaves for continued conversation regarding options. Olivia's goal is for Pt to return home and reports understanding of Pt's need for constant supervision. Cici Rodrigues will continue to work with Olivia on D/C plan. Palliative Care will remain available.
--- NOTE | 2020-06-08 17:57 | NUR ---
Shift Summary A/Ox2 to self and hospital. Up with SBA/FWW to bathroom. Denies pain, nausea, vomiting, diarrhea. Cooperative, grumpy. Dyspneic with exertion. Family had conference with MD/IRMA today. Appetite is good. VSS. No acute concerns. WCTM.
--- NOTE | 2020-06-09 04:17 | NUR ---
SHIFT SUMMARY ASSUMED CARE OF PT AT 1900. PT IS A/OX2. HEART SOUNDS IRREGULAR, LUNG SOUNDS ARE DIMINSHED T/O. PT USES 3L NC, SOB WITH ACTIVITY. PT IS 1P SBA TO BATHROOM. PT C/O HAVING BLOOD IN STOOL BUT FLUSHED TOILET BEFORE THIS NURSE COULD SEE. PT KEPT ASKING THIS NURSE "WHEN WILL YOU LET ME GO HOME". PT ALSO STATED THAT HE DOESNT UNDERSTAND WHAT PEOPLE ARE TELLING HIM. CALL LIGHT IN REACH, BED IN LOWEST POSITION.
[2020-06-09 08:56] LABS: Anion Gap -1 mmol/L (6-16); Blood Urea Nitrogen 37 mg/dL (8-24); Bun/Creatinine Ratio 31.6 (12.0-20.0); CO2, Blood 41 mmol/L (21-32); Calcium, Blood 8.9 mg/dL (8.5-10.1); Chloride, Blood 103 mmol/L (98-108); Creatinine, Blood 1.17 mg/dL (0.60-1.20); Glomerular Filtration Rate >60 (60-); Glucose, Blood 82 mg/dL (70-99); Potassium, Blood 4.3 mmol/L (3.5-5.5); Sodium, Blood 143 mmol/L (136-145)
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
--- NOTE | 2020-06-09 19:15 | NUR ---
ASSUMED CARE RECEIVED REPORT FROM VI DORMAN. PT SITTING ON EDGE OF BED, IN NO ACUTE DISTRESS. APPEARS ANXIOUS, ASKING ABOUT HIS "CAREGIVER." PROVIDED REASSURANCE. NO ACUTE NEEDS ASSESSED AT THIS TIME. CONTINUE TO MONITOR.
--- NOTE | 2020-06-09 22:15 | NUR ---
THIS RN SPOKE TO PT'S CAREGIVER ON PHONE, VERBAL CONSENT OBTAINED FROM PT. PROVIDED REASSURANCE R/T PT'S CONDITION. ASSISTED TO CALL PT'S ROOM PHONE SO SHE COULD SPEAK TO PT.
[2020-06-10 05:42] LABS: Bun/Creatinine Ratio 26.7 (12.0-20.0); Calcium, Blood 8.8 mg/dL (8.5-10.1); Creatinine, Blood 1.35 mg/dL (0.60-1.20); Potassium, Blood 4.2 mmol/L (3.5-5.5)
--- NOTE | 2020-06-10 06:47 | NUR ---
AUTO VINYL TOP INSTALLER SUMMARY PT ASLEEP, IN NO ACUTE DISTRESS. NO ACUTE CHANGES IN CONDITION OVERNIGHT, VS REVIEWED, WNL. PAIN MANAGED WITH MEDS PER EMAR, WITH EFFECTIVE RELIEF. NO REPORTS OF BLOODY STOOLS THIS SHIFT. AM H&H PENDING. PT DENIES NEEDS AT THIS TIME. CALL LIGHT AND POSSESSIONS IN REACH, IVF ONGOING. WILL REPORT OFF TO DAY RN.
--- NOTE | 2020-06-10 06:50 | NUR ---
SUPERVISOR REWORK SUMMARY PT RESTING COMFORTABLY, IN NO ACUTE DISTRESS. VS REVIEWED, WNL. PT INDEPENDENT IN ROOM T/O NIGHT, NO ACUTE CHANGES IN CONDITION OVERNIGHT. DENIES NEEDS. CALL LIGHT AND POSSESSIONS IN REACH, REPORT GIVEN TO VI SCHWAB.
[2020-06-10] MEDS ORDERED: DONE5 PO (13:42)
[2020-06-10] MEDS ORDERED: FURO20 PO (13:42)
--- NOTE | 2020-06-10 15:34 | NUR ---
DISCHARGE SUMMARY: PATIENT DENIED PAIN OR DISCOMFORT THROUGHOUT THE SHIFT. PATIENT HAD SOB WITH ACTIVITY. PATIENT REPORTED THAT THIS WAS NORMAL FOR HIM. PATIENT PRACTICED PURSED LIP BREATHING ONCE AT REST AND RECOVERED QUICKLY. PATIENT UP INDEPENDENTLY IN THE ROOM. PATIENT STEADY ON FEET. PATIENT HAD MILD CONFUSION AT TIMES AND WAS EASILY ORIENTED. FOR EXAMPLE, THIS MORNING PATIENT ASKED HOW HE WAS GOING TO GET TO HIS APPOINTMENT AT THE [place]. AFTER VERIFYING WITH THE DAUGHTER THAT HE DID NOT HAVE AN APPOINTMENT AND PROVIDING EXPLANATION TO THE PATIENT, HE WAS ABLE TO REMEMBER THROUGHOUT THE REST OF THE SHIFT THAT HE DID NOT HAVE AN APPOINTMENT. PATIENT ABLE TO ANSWER QUESTIONS APPROPRIATELY AND FOLLOW DIRECTIONS. ORDER FOR PATIENT TO DISCHARGE. DISCHARGE RX SENT TO [facility] PER FAMILY REQUEST. DISCHARGE INSTRUCTIONS AND EDUCATION PROVIDED TO THE PATIENT AND DAUGHTER AT BEDSIDE. ALL QUESTIONS AND CONCERNS ADDRESSED. DAUGHTER EXPRESSED UNDERSTANDING OF FOLLOW-UP LAB WORK AND APPOINTMENTS. PATIENT DISCHARGED IN WHEELCHAIR WITH DAUGHTER AND ILLUSIONIST. PATIENT STABLE AT TIME OF DISCHARGE.
== END 2020-06-10 15:07 | disposition home health service (06) ==
LOC: ER 20:53 → MEDS 20:54 → ERHOLD 20:54 → MEDS 06-05 13:39
PROVIDERS: Emergency Medicine; Internal Medicine; ADMIT Internal Medicine
DX: I13.0 Hypertensive heart and chronic kidney disease with heart failure and stage 1 through stage 4 chronic kidney disease, or unspecified chronic kidney disease (principal); I50.33 Acute on chronic diastolic (congestive) heart failure; J44.9 Chronic obstructive pulmonary disease, unspecified; J96.11 Chronic respiratory failure with hypoxia; N17.9 Acute kidney failure, unspecified; N18.30 Chronic kidney disease, stage 3 unspecified; I48.0 Paroxysmal atrial fibrillation; N40.0 Benign prostatic hyperplasia without lower urinary tract symptoms; F03.90 Unspecified dementia, unspecified severity, without behavioral disturbance, psychotic disturbance, mood disturbance, and anxiety; Z87.891 Personal history of nicotine dependence; Z85.118 Personal history of other malignant neoplasm of bronchus and lung; Z79.01 Long term (current) use of anticoagulants; Z23 Encounter for immunization; Z66 Do not resuscitate
CPT/HCPCS: 36415; 36600; 71045; 80048; 80053; 80162; 82803; 83880; 84484; 85025; 92523; 93005; 93010; 94640; 94668; 94760; 94761; 94762; 96374; 97116; 97162; 99285-25; A9270; G0378; J1940; J7512; Q2038